=== PATIENT | female | born 1990 | race Caucasian/White ===

== ENCOUNTER 2017-03-02 08:56 | Emergency (ER) | payer OTHER ==
[~2017-03-02] VITALS: Ht 170.2 cm; Wt 130.0 kg
[~2017-03-02 08:56] MED LIST: DIVA250T PO; LACT20SO4 PO; QUET100 PO
[2017-03-02 08:57] VITALS: BP 190/70; PULSE 101; RESP 20; TEMP 97.8; O2SAT 98
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
[2017-03-02] MEDS ORDERED: AZIT250T3 PO (10:42)
[2017-03-02] MEDS ORDERED: VENTAER INH (10:42)
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
[2017-03-02] MEDS ORDERED: RESP: ALBUTEROL 2.5 MG/IPRATROPIUM 0.5 MG NEB (SCH) NEB ONE (10:45)
[2017-03-02 11:47] VITALS: BP 136/88; PULSE 89; RESP 17; O2SAT 100
[2017-03-02] MEDS ORDERED: BENZ100 PO (11:57)
== END 2017-03-02 12:02 | disposition home or self-care (01) ==
LOC: NEPD 08:56
DX: J20.9 Acute bronchitis, unspecified (principal); H92.09 Otalgia, unspecified ear; F31.9 Bipolar disorder, unspecified; F41.9 Anxiety disorder, unspecified
CPT/HCPCS: 71010; 94664; 99284

== ENCOUNTER 2017-03-16 18:43 | Inpatient (IN) | payer OTHER ==
[~2017-03-16] VITALS: Ht 170.2 cm; Wt 122.3 kg
[~2017-03-16 18:43] MED LIST changes: +AZIT250T3 PO; +BENZ100 PO; -DIVA250T PO; -LACT20SO4 PO; -QUET100 PO; +VENTAER INH
[2017-03-16 18:47] VITALS: BP 123/77; PULSE 101; RESP 18; TEMP 98.7; O2SAT 100
[2017-03-16 19:17] VITALS: BP 138/71; PULSE 96; RESP 17; TEMP 99.1; O2SAT 100
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
[2017-03-16 20:31] LABS: AUTOMATED NEUTROPHIL # 11.6 TH/MM3 (1.8-7.7); BASOPHIL # 0.1 TH/MM3 (0-0.2); BASOPHIL % 0.5 % (0.0-2.0); EOSINOPHIL # 0.3 TH/MM3 (0-0.4); EOSINOPHIL % 2.2 % (0.0-4.0); HEMATOCRIT 40.5 % (35.0-46.0); HEMO FLAGS DIFF FINAL; LYMPH % 15.9 % (9.0-44.0); LYMPHOCYTE # 2.5 TH/MM3 (1.0-4.8); MEAN CELL VOLUME 86.9 FL (80.0-100.0); MEAN CORPUSCULAR HGB CONC 33.3 % (32.0-36.0); MONO % 7.2 % (0.0-8.0); NEUT % 74.2 % (16.0-70.0); PLATELET COUNT 313 TH/MM3 (150-450); RED BLOOD COUNT 4.66 MIL/MM3 (4.00-5.30); RED CELL DISTRIBUTION WIDTH 13.2 % (11.6-17.2); WHITE BLOOD COUNT 15.7 TH/MM3 (4.0-11.0)
[2017-03-16 21:10] LABS: ALKALINE PHOSPHATASE 100 U/L (45-117); ALT (GPT) 31 U/L (10-53); ANION GAP 10 MEQ/L (5-15); AST (GOT) 58 U/L (15-37); BICARBONATE 24.9 MEQ/L (21.0-32.0); BLOOD UREA NITROGEN 8 MG/DL (7-18); CHLORIDE 100 MEQ/L (98-107); GLOMERULAR FILTRATION RATE 87 ML/MIN (>89); SODIUM (NA) 135 MEQ/L (136-145); TOTAL BILIRUBIN ADULT 1.1 MG/DL (0.2-1.0)
[2017-03-16 21:14] LABS: ACETAMINOPHEN LESS THAN 2.0 MCG/ML (10.0-30.0); ALCOHOL LESS THAN 3 MG/DL (0-5)
[2017-03-16 21:16] LABS: POTASSIUM 2.9 MEQ/L (3.5-5.1)
[2017-03-16] MEDS ORDERED: LORazepam 2 MG/ML VIAL IM ONE (21:30)
[2017-03-16] MEDS ORDERED: POTASSIUM CHLOR 10 MEQ PREMIX 100 ML IV ONE (21:30)
[2017-03-16] MEDS ORDERED: POTASSIUM CHLORIDE 20 MEQ CONTROLLED RELEASE TAB PO ONE (21:30)
[2017-03-16] MEDS ORDERED: OLANZapine IM 10 MG VIAL IM ONE (21:45)
[2017-03-17] VITALS (9 sets, daily range): BP systolic 128–179; BP diastolic 66–101; PULSE 72–94; RESP 14–17; TEMP 98.7; O2SAT 98–100
[2017-03-17 02:33] LABS: ALKALINE PHOSPHATASE 82 U/L (45-117); ALT (GPT) 30 U/L (10-53); ANION GAP 6 MEQ/L (5-15); AST (GOT) 45 U/L (15-37); BICARBONATE 28.4 MEQ/L (21.0-32.0); BLOOD UREA NITROGEN 8 MG/DL (7-18); CHLORIDE 105 MEQ/L (98-107); GLOMERULAR FILTRATION RATE 123 ML/MIN (>89); POTASSIUM 3.6 MEQ/L (3.5-5.1); SODIUM (NA) 139 MEQ/L (136-145); TOTAL BILIRUBIN ADULT 0.9 MG/DL (0.2-1.0)
[2017-03-17] MEDS ORDERED: POTASSIUM CHLORIDE 20 MEQ CONTROLLED RELEASE TAB PO ONE (08:00)
[2017-03-17] MEDS ORDERED: LORazepam 2 MG/ML VIAL IM PRN (10:15)
[2017-03-17] MEDS ORDERED: ACETAMINOPHEN 325 MG TAB PO PRN (10:15)
[2017-03-17] MEDS ORDERED: LORazepam 1 MG TAB PO PRN (10:15)
[2017-03-17] MEDS ORDERED: MAGNESIUM HYDROXIDE SUSP 30 ML CUP PO PRN (10:15)
[2017-03-17] MEDS ORDERED: diphenhydrAMINE HCL 50 MG/ML VIAL IM PRN (10:15)
[2017-03-17] MEDS ORDERED: ALUMINUM/MAGNESIUM/SIMETH 30 ML CUP PO PRN (10:15)
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
[2017-03-18 05:56] VITALS: BP 119/66; PULSE 97; RESP 18; TEMP 98; O2SAT 96
[2017-03-18 08:41] LABS: AUTOMATED NEUTROPHIL # 6.7 TH/MM3 (1.8-7.7); BASOPHIL % 0.5 % (0.0-2.0); EOSINOPHIL # 0.3 TH/MM3 (0-0.4); EOSINOPHIL % 3.1 % (0.0-4.0); HEMATOCRIT 38.3 % (35.0-46.0); HEMO FLAGS DIFF FINAL; LYMPH % 19.8 % (9.0-44.0); MEAN CELL VOLUME 87.2 FL (80.0-100.0); MEAN CORPUSCULAR HEMOGLOBIN 29.9 PG (27.0-34.0); MEAN CORPUSCULAR HGB CONC 34.3 % (32.0-36.0); MONO % 9.8 % (0.0-8.0); NEUT % 66.8 % (16.0-70.0); PLATELET COUNT 272 TH/MM3 (150-450); RED BLOOD COUNT 4.39 MIL/MM3 (4.00-5.30); RED CELL DISTRIBUTION WIDTH 13.2 % (11.6-17.2)
[2017-03-18 09:02] LABS: ANION GAP 7 MEQ/L (5-15); AST (GOT) 38 U/L (15-37); BICARBONATE 25.6 MEQ/L (21.0-32.0); BLOOD UREA NITROGEN 10 MG/DL (7-18); CHLORIDE 104 MEQ/L (98-107); GLOMERULAR FILTRATION RATE 93 ML/MIN (>89); POTASSIUM 3.4 MEQ/L (3.5-5.1); SODIUM (NA) 137 MEQ/L (136-145)
[2017-03-18 09:30] LABS: ALKALINE PHOSPHATASE 89 U/L (45-117); ALT (GPT) 33 U/L (10-53); HDL CHOLESTEROL 37.5 MG/DL (40.0-60.0); LDL CHOLESTEROL 87 MG/DL (0-99); TOTAL BILIRUBIN ADULT 0.8 MG/DL (0.2-1.0)
--- NOTE | 2017-03-18 14:29 | HHI.PYPN ---
Subjective Remarks Pt seen and discussed with staff. Pt is no longer catatonic but she has been observed responding to internal stimuli and has been agitated with administrative staff supervisor. She states that she stopped taking geodon because "it wasn't working anyway". but will not elaborate further. She states that she absolutely will not take geodon or risperdal but does agree to trial of abilify. She is bizarre and easily agitated. Mental Status Examination Appearance: Disheveled Consciousness: Alert Orientation: Person, Place Motor Activity: Normal gait Speech: Pressured, Other (mute) Language: Adequate Fund of Knowledge: Adequate Attention and Concentration: Easily Distracted, Inadequate Memory: Impaired Mood: Angry, Other (easily agitated) Affect: Other (bizarre intense stare) Thought Process & Associations: Loose associations Thought Content: Delusional Hallucination Type: Auditory, Other (Appears int stim) Delusion Type: Bizarre, Paranoid, Other (Unable to assess as pt is mute) Suicidal Ideation: No Suicidal Plan: No Suicidal Intention: No Homicidal Ideation: No Homicidal Plan: No Homicidal Intention: No Insight: Poor Judgment: Poor Results Labs Test 03/18/17 07:55 White Blood Count 10.0 TH/MM3 Red Blood Count 4.39 MIL/MM3 Hemoglobin 13.1 GM/DL Hematocrit 38.3 % Mean Corpuscular Volume 87.2 FL Mean Corpuscular Hemoglobin 29.9 PG Mean Corpuscular Hemoglobin Concent 34.3 % Red Cell Distribution Width 13.2 % Platelet Count 272 TH/MM3 Mean Platelet Volume 8.1 FL Neutrophils (%) (Auto) 66.8 % Lymphocytes (%) (Auto) 19.8 % Monocytes (%) (Auto) 9.8 % Eosinophils (%) (Auto) 3.1 % Basophils (%) (Auto) 0.5 % Neutrophils # (Auto) 6.7 TH/MM3 Lymphocytes # (Auto) 2.0 TH/MM3 Monocytes # (Auto) 1.0 TH/MM3 Eosinophils # (Auto) 0.3 TH/MM3 Basophils # (Auto) 0.0 TH/MM3 CBC Comment DIFF FINAL Differential Comment Blood Urea Nitrogen 10 MG/DL Creatinine 0.75 MG/DL Random Glucose 95 MG/DL Total Protein 7.9 GM/DL Albumin 3.9 GM/DL Calcium Level 8.5 MG/DL Alkaline Phosphatase 89 U/L Aspartate Amino Transf (AST/SGOT) 38 U/L Alanine Aminotransferase (ALT/SGPT) 33 U/L Total Bilirubin 0.8 MG/DL Sodium Level 137 MEQ/L Potassium Level 3.4 MEQ/L Chloride Level 104 MEQ/L Carbon Dioxide Level 25.6 MEQ/L Anion Gap 7 MEQ/L Estimat Glomerular Filtration Rate 93 ML/MIN Triglycerides Level 107 MG/DL Cholesterol Level 146 MG/DL LDL Cholesterol 87 MG/DL HDL Cholesterol 37.5 MG/DL Cholesterol/HDL Ratio 3.89 RATIO Vitamin B12 Level 497 PG/ML 25-Hydroxy Vitamin D Total 19.0 ng/ML Thyroid Stimulating Hormone 3rd Gen 1.240 uIU/ML Vitals/IOs Vital Signs Date Time Temp Pulse Resp B/P (MAP) Pulse Ox O2 Delivery O2 Flow Rate FiO2 03/18/17 05:56 98.0 97 18 119/66 (83) 96 03/17/17 04:43 Room Air Assessment & Plan Problem List: (1) Bipolar disorder, current episode mixed, severe, with psychotic features ICD Codes: F31.64 - Bipolar disorder, current episode mixed, severe, with psychotic features Assessment & Plan Start trial of Abilify. Continue hospitalization. Estimated LOS: days Justification for Cont. Inpt. impairments in reality testing, agitation Leny Brand MD Mar 18, 2017 14:29
[2017-03-18] MEDS ORDERED: RESP: ALBUTEROL 2.5 MG/IPRATROPIUM 0.5 MG NEB (PRN) NEB (15:30)
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
[2017-03-18 17:22] VITALS: BP 130/72; PULSE 80; RESP 18; TEMP 98; O2SAT 97
[2017-03-18] MEDS ORDERED: POTASSIUM CHLORIDE 10 MEQ CONTROLLED RELEASE TAB PO ONE (17:45)
[2017-03-18] MEDS: diphenhydrAMINE HCL 50 MG CAP PO PRN (21:00)
[2017-03-18] MEDS: NYSTATIN 100,000 UNIT/GM CREAM 15 GM TOPICAL SCH (21:00)
[2017-03-18] MEDS: BENZONATATE 100 MG CAP PO PRN (21:00)
[2017-03-18] MEDS: ALBUTEROL SULFATE 90 MCG/ACT HFA 8 GM INHALER INH PRN (21:00)
[2017-03-18 22:52] LABS: BLOOD, URINE LARGE (NEG); CALCIUM OXALATE CRYSTALS,URINE OCC /hpf; COMMENT (UR) CULT NOT INDICATED; CULTURE IF INDICATED CULT NOT INDICATED; GLUCOSE,URINE NEG (NEG); KETONE, URINE NEG (NEG); MUCUS URINE FEW /lpf (OCC); NITRITE,URINE NEG (NEG); SQUAMOUS EPITHELIAL CELL URINE 3 /hpf (0-5); URINE COLOR YELLOW (YELLW/STRAW)
[2017-03-19 01:09] LABS: CHLAMYDIA PCR NOT DETECTED (NOT DETECT); NEISSERIA PCR NOT DETECTED (NOT DETECT)
[2017-03-19] MEDS: BENZONATATE 100 MG CAP PO PRN ×2 (05:36→21:08)
[2017-03-19] MEDS: ALBUTEROL SULFATE 90 MCG/ACT HFA 8 GM INHALER INH PRN ×3 (05:36→21:07)
[2017-03-19 05:57] VITALS: BP 133/64; PULSE 88; RESP 17; TEMP 97.6; O2SAT 97
--- NOTE | 2017-03-19 08:28 | HHI.PR ---
Subjective Remarks no cough, fever ro chills.She is not weezinf. No abd pain. Eating well. Feels much better. Rash and itching perineal the same. Objective Vitals Vital Signs Date Time Temp Pulse Resp B/P (MAP) Pulse Ox O2 Delivery O2 Flow Rate FiO2 03/19/17 05:57 97.6 88 17 133/64 (87) 97 03/18/17 17:22 98.0 80 18 130/72 (91) 97 Result Diagram: 03/18/17 0755 03/18/17 0755 Objective Remarks GENERAL: This is a well-nourished, well-developed patient, in no apparent distress. SKIN: Intertriginous perineal red beefy rash. No ecchymoses. Cool and dry. CARDIOVASCULAR: Regular rate and rhythm without murmurs, gallops, or rubs. RESPIRATORY: Clear to auscultation. Breath sounds equal bilaterally. No wheezes , rales, or rhonchi. GASTROINTESTINAL: Abdomen soft, non-tender, nondistended. No hepato-splenomegaly , or palpable masses. No guarding. MUSCULOSKELETAL: Extremities without clubbing, cyanosis, or edema. No joint tenderness, effusion, or edema noted. No calf tenderness. Negative Homans sign bilaterally. A/P Assessment and Plan 26-year-old female here under Barron act for psychiatric evaluation. Patient is admitted to psych unit for management Bipolar disorder management per psych H/o Asthma duonebs as need. Monitor O2 sat . Currently satting well on room air. Tessalon pearles prn if cough CBC reveals leukocytosis.Monitor for signs of infection Cutaneous candidiasis: Continue nystatin cream. UA and GC/Chlam reviewed and negative. Hypokalemia: Potassium levels 3.1. replaced in the ED. Monitor and replete as need DVT ppx early ambulation Discussed Condition With patient, nurse Kaylen Almonte MD Mar 19, 2017 08:28
[2017-03-19] MEDS: NYSTATIN 100,000 UNIT/GM CREAM 15 GM TOPICAL SCH ×2 (09:06→21:08)
[2017-03-19 09:32] LABS: HEMOGLOBIN A1a 1.2 %; HEMOGLOBIN A1b 1.8 %; HEMOGLOBIN Ao 85.5 %; HEMOGLOBIN P3 3.5 %
[2017-03-19] MEDS: ARIPiprazole 5 MG TAB PO SCH (12:00)
--- NOTE | 2017-03-19 12:02 | HHI.PYPN ---
Subjective Remarks Pt seen and discussed with staff. She remains psychotic and manic, but has not been aggressive this morning. She has spent most of morning in room. She states that she is agreeable to take medications. No SI/HI Mental Status Examination Appearance: Disheveled Consciousness: Alert Orientation: Person, Place Motor Activity: Normal gait Speech: Pressured, Other (mute) Language: Adequate Fund of Knowledge: Adequate Attention and Concentration: Easily Distracted, Inadequate Memory: Impaired Mood: Angry, Other (easily agitated) Affect: Other (bizarre intense stare) Thought Process & Associations: Loose associations Thought Content: Delusional Hallucination Type: Auditory, Other (Appears int stim) Delusion Type: Bizarre, Paranoid, Other (Unable to assess as pt is mute) Suicidal Ideation: No Suicidal Plan: No Suicidal Intention: No Homicidal Ideation: No Homicidal Plan: No Homicidal Intention: No Insight: Poor Judgment: Poor Results Labs Test 03/18/17 21:10 Urine Color YELLOW Urine Turbidity CLEAR Urine pH 6.0 Urine Specific [place] 1.032 Urine Protein 30 mg/dL Urine Glucose (UA) NEG mg/dL Urine Ketones NEG mg/dL Urine Occult Blood LARGE Urine Nitrite NEG Urine Bilirubin NEG Urine Urobilinogen 4.0 MG/DL Urine Leukocyte Esterase NEG Urine RBC /hpf Urine WBC LESS THAN 1 /hpf Urine Squamous Epithelial Cells 3 /hpf Urine Calcium Oxalate Crystals OCC /hpf Urine Mucus FEW /lpf Microscopic Urinalysis Comment CULT NOT INDICATED Chlamydia trachomatis DNA (PCR) NOT DETECTED Neisseria gonorrhoeae DNA (PCR) NOT DETECTED Vitals/IOs Vital Signs Date Time Temp Pulse Resp B/P (MAP) Pulse Ox O2 Delivery O2 Flow Rate FiO2 03/19/17 05:57 97.6 88 17 133/64 (87) 97 03/17/17 04:43 Room Air Assessment & Plan Problem List: (1) Bipolar disorder, current episode mixed, severe, with psychotic features ICD Codes: F31.64 - Bipolar disorder, current episode mixed, severe, with psychotic features Assessment & Plan Continue current tx plan. Estimated LOS: days Justification for Cont. Inpt. psychosis Leny Brand MD Mar 19, 2017 12:02
[2017-03-19 18:21] VITALS: BP 123/68; PULSE 86; RESP 18; TEMP 98.8; O2SAT 99
--- NOTE | 2017-03-19 22:57 | EKG ---
Date Performed: 03/18/2017 Time Performed: 09:26:28 PTAGE: 26 years EKG: Sinus rhythm NORMAL ECG PREVIOUS TRACING : 07/13/2013 17.39 Compared to prior tracing no significant change DOCTOR: Alexys Vivar Interpretating Date/Time 03/19/2017 22:55:24
[2017-03-20] MEDS: diphenhydrAMINE HCL 50 MG CAP PO PRN (03:01)
[2017-03-20 06:07] VITALS: BP 164/78; PULSE 87; RESP 16; TEMP 97.8; O2SAT 97
[2017-03-20 06:09] VITALS: BP 124/71; PULSE 82; RESP 18; TEMP 97.6; O2SAT 97
[2017-03-20] MEDS: ARIPiprazole 5 MG TAB PO SCH (08:46)
[2017-03-20] MEDS: NYSTATIN 100,000 UNIT/GM CREAM 15 GM TOPICAL SCH (08:47)
--- NOTE | 2017-03-20 10:19 | HHI.PR ---
Subjective Remarks Rash and itch is improving. No fever or chills. No sob or wheezing. Denies abd pain or urinary complaints. Feels better Objective Vitals Vital Signs Date Time Temp Pulse Resp B/P (MAP) Pulse Ox O2 Delivery O2 Flow Rate FiO2 03/20/17 06:09 97.6 82 18 124/71 (88) 97 03/20/17 06:07 97.8 87 16 164/78 (106) 97 03/19/17 18:21 98.8 86 18 123/68 (86) 99 03/19/17 16:57 Result Diagram: 03/18/17 0755 03/18/17 0755 Objective Remarks GENERAL: This is a well-nourished, well-developed patient, in no apparent distress. SKIN: Intertriginous perineal red beefy rash. No ecchymoses. Cool and dry. CARDIOVASCULAR: Regular rate and rhythm without murmurs, gallops, or rubs. RESPIRATORY: Clear to auscultation. Breath sounds equal bilaterally. No wheezes , rales, or rhonchi. GASTROINTESTINAL: Abdomen soft, non-tender, nondistended. No hepato-splenomegaly , or palpable masses. No guarding. MUSCULOSKELETAL: Extremities without clubbing, cyanosis, or edema. No joint tenderness, effusion, or edema noted. No calf tenderness. Negative Homans sign bilaterally. A/P Assessment and Plan 26-year-old female here under Barron act for psychiatric evaluation. Patient is admitted to psych unit for management Bipolar disorder management per psych H/o Asthma duonebs as need. Monitor O2 sat . Currently satting well on room air. Tessalon pearles prn if cough CBC reveals leukocytosis.Monitor for signs of infection Cutaneous candidiasis: Continue nystatin cream. UA and GC/Chlam reviewed and negative. Hypokalemia: Potassium levels 3.1. replaced in the ED. Monitor and replete as need DVT ppx early ambulation Discussed Condition With patient, nurse Kaylen Almonte MD Mar 20, 2017 10:19
[2017-03-20] MEDS ORDERED: ARIP1TAB11 PO (11:46)
[2017-03-20] MEDS ORDERED: NYST15T TOPICAL (11:46)
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
== END 2017-03-20 16:20 | disposition home or self-care (01) | DRG 885 ==
LOC: NEPJ 18:43 → NEDA 03-17 10:13 → H270 03-17 11:20
PROVIDERS: ADMIT Psychiatry & Neurology Psychiatry; ATTEND Psychiatry & Neurology Psychiatry
DX: F31.77 Bipolar disorder, in partial remission, most recent episode mixed (principal); F06.1 Catatonic disorder due to known physiological condition; Z78.1 Physical restraint status; E87.6 Hypokalemia; D72.829 Elevated white blood cell count, unspecified; B37.2 Candidiasis of skin and nail; F12.10 Cannabis abuse, uncomplicated; F41.9 Anxiety disorder, unspecified; J45.909 Unspecified asthma, uncomplicated; R35.0 Frequency of micturition; Z87.820 Personal history of traumatic brain injury; Z91.14 Patient's other noncompliance with medication regimen; Z83.3 Family history of diabetes mellitus; Z81.8 Family history of other mental and behavioral disorders
CPT/HCPCS: 80053; 80061; 80307; 81001; 82306; 82607; 83036; 84443; 84703; 85025; 87491; 87591; 93005; 96365; 96366; J3480; Q0163

== ENCOUNTER 2017-04-05 18:34 | Emergency (ER) | payer OTHER ==
[~2017-04-05 18:34] MED LIST changes: +ARIP1TAB11 PO; -AZIT250T3 PO; +NYST15T TOPICAL
[2017-04-05 18:38] VITALS: BP 176/93; PULSE 106; RESP 18; TEMP 97.7; O2SAT 99
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
== END 2017-04-05 19:59 | disposition left against medical advice (07) ==
LOC: NEPK 18:34
DX: M25.571 Pain in right ankle and joints of right foot (principal); F31.9 Bipolar disorder, unspecified; F41.9 Anxiety disorder, unspecified; Z79.899 Other long term (current) drug therapy; Z79.51 Long term (current) use of inhaled steroids
CPT/HCPCS: 99282

== ENCOUNTER 2017-04-07 11:49 | Inpatient (IN) | payer OTHER ==
[~2017-04-07] VITALS: Ht 172.7 cm; Wt 118.2 kg
[2017-04-07 11:55] VITALS: BP 162/87; PULSE 103; RESP 18; TEMP 98.6; O2SAT 98
[2017-04-07 12:02] VITALS: BP 162/87; PULSE 101; RESP 18; TEMP 98.6; O2SAT 98
[2017-04-07] MEDS ORDERED: LORazepam 2 MG/ML VIAL IV PUSH ONE (12:15)
[2017-04-07] MEDS ORDERED: SODIUM CHLOR 0.9% 1000 ML INJ 1,000 ML IV ONE (12:15)
[2017-04-07 12:21] LABS: AUTOMATED NEUTROPHIL # 9.5 TH/MM3 (1.8-7.7); BASOPHIL # 0.1 TH/MM3 (0-0.2); BASOPHIL % 0.8 % (0.0-2.0); EOSINOPHIL # 0.2 TH/MM3 (0-0.4); EOSINOPHIL % 1.1 % (0.0-4.0); HEMATOCRIT 37.5 % (35.0-46.0); HEMOGLOBIN 12.8 GM/DL (11.6-15.3); LYMPH % 21.9 % (9.0-44.0); MEAN CELL VOLUME 87.3 FL (80.0-100.0); MEAN CORPUSCULAR HEMOGLOBIN 29.8 PG (27.0-34.0); MEAN CORPUSCULAR HGB CONC 34.2 % (32.0-36.0); MEAN PLATELET VOLUME 8.1 FL (7.0-11.0); MONO % 7.8 % (0.0-8.0); MONOCYTE # 1.1 TH/MM3 (0-0.9); NEUT % 68.4 % (16.0-70.0); PLATELET COUNT 278 TH/MM3 (150-450); RED BLOOD COUNT 4.29 MIL/MM3 (4.00-5.30); RED CELL DISTRIBUTION WIDTH 13.8 % (11.6-17.2); WHITE BLOOD COUNT 13.9 TH/MM3 (4.0-11.0)
[2017-04-07 12:36] LABS: ALT (GPT) 23 U/L (10-53); AST (GOT) 27 U/L (15-37); BICARBONATE 24.1 MEQ/L (21.0-32.0); BLOOD UREA NITROGEN 5 MG/DL (7-18); CALCIUM 8.6 MG/DL (8.5-10.1); CHLORIDE 106 MEQ/L (98-107); CREATININE 0.71 MG/DL (0.50-1.00); GLOMERULAR FILTRATION RATE 100 ML/MIN (>89); GLUCOSE,RANDOM 110 MG/DL (74-106); SODIUM (NA) 138 MEQ/L (136-145)
[2017-04-07 12:38] LABS: ALKALINE PHOSPHATASE 77 U/L (45-117); TOTAL PROTEIN 7.6 GM/DL (6.4-8.2)
[2017-04-07 12:40] LABS: ACETAMINOPHEN LESS THAN 2.0 MCG/ML (10.0-30.0)
[2017-04-07] MEDS: POTASSIUM CHLORIDE 10 MEQ CONTROLLED RELEASE TAB PO ONE (13:15)
[2017-04-07] MEDS: POTASSIUM CHLOR 10 MEQ PREMIX 100 ML IV SCH ×2 (14:15→15:02)
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
[2017-04-07 17:00] VITALS: BP 128/65; PULSE 107; RESP 20; TEMP 97.4; O2SAT 98
--- NOTE | 2017-04-07 17:50 | RADRPT ---
EXAM DATE/TIME: 04/07/2017 17:31 [facility] COMPARISON: No previous studies available for comparison. INDICATIONS : Right ankle pain. No known injruy. MEDICAL HISTORY : Unobtainable. SURGICAL HISTORY : Unobtainable. ENCOUNTER: Initial ACUITY: 1 day PAIN SCORE: Non-responsive. LOCATION: Right Ankle FINDINGS: Fracture base of the fifth metatarsal. Anatomic alignment about the ankle. Talus intact. CONCLUSION: Horizontal fracture base of the fifth metatarsal. Reinaldo Maier MD FACR on April 07, 2017 at 17:47 Board Certified Radiologist. This report was verified electronically.
[2017-04-07] MEDS ORDERED: ALUMINUM/MAGNESIUM/SIMETH 30 ML CUP PO PRN (21:45)
[2017-04-07] MEDS ORDERED: LORazepam 2 MG/ML VIAL IM PRN (21:45)
[2017-04-07] MEDS ORDERED: diphenhydrAMINE HCL 50 MG/ML VIAL IM PRN (21:45)
[2017-04-07] MEDS ORDERED: hydrOXYzine HCL 50 MG TAB PO PRN (21:45)
[2017-04-07] MEDS ORDERED: MAGNESIUM HYDROXIDE SUSP 30 ML CUP PO PRN (21:45)
[2017-04-07] MEDS ORDERED: diphenhydrAMINE HCL 50 MG CAP PO PRN (21:45)
[2017-04-07] MEDS ORDERED: diphenhydrAMINE HCL 50 MG/ML VIAL - HS PRN IM (21:45)
[2017-04-07] MEDS ORDERED: diphenhydrAMINE HCL 50 MG CAP - HS PRN PO (21:45)
[2017-04-07] MEDS ORDERED: ACETAMINOPHEN 325 MG TAB PO PRN (21:45)
[2017-04-07] MEDS ORDERED: clonazePAM 1 MG TAB PO ONE (22:00)
[2017-04-07 22:02] VITALS: BP 137/74; PULSE 75; RESP 18
[2017-04-07] MEDS ORDERED: ARIPiprazole 10 MG TAB PO ONE (22:15)
[2017-04-07 22:20] VITALS: BP 144/86; PULSE 96; RESP 17; TEMP 97.9; O2SAT 96
[2017-04-08] MEDS: traZODone HCL 50 MG TAB PO PRN (00:51)
[2017-04-08 06:15] VITALS: BP 124/79; PULSE 91; RESP 17; TEMP 98; O2SAT 99
[2017-04-08 08:28] LABS: AUTOMATED NEUTROPHIL # 5.5 TH/MM3 (1.8-7.7); BASOPHIL # 0.1 TH/MM3 (0-0.2); BASOPHIL % 0.9 % (0.0-2.0); EOSINOPHIL # 0.3 TH/MM3 (0-0.4); EOSINOPHIL % 3.5 % (0.0-4.0); HEMATOCRIT 37.6 % (35.0-46.0); HEMOGLOBIN 12.6 GM/DL (11.6-15.3); LYMPH % 24.7 % (9.0-44.0); LYMPHOCYTE # 2.2 TH/MM3 (1.0-4.8); MEAN CELL VOLUME 88.1 FL (80.0-100.0); MEAN CORPUSCULAR HEMOGLOBIN 29.5 PG (27.0-34.0); MEAN CORPUSCULAR HGB CONC 33.4 % (32.0-36.0); MEAN PLATELET VOLUME 8.5 FL (7.0-11.0); MONO % 8.7 % (0.0-8.0); MONOCYTE # 0.8 TH/MM3 (0-0.9); NEUT % 62.2 % (16.0-70.0); PLATELET COUNT 270 TH/MM3 (150-450); RED BLOOD COUNT 4.27 MIL/MM3 (4.00-5.30); WHITE BLOOD COUNT 8.9 TH/MM3 (4.0-11.0)
[2017-04-08 08:43] LABS: BICARBONATE 23.5 MEQ/L (21.0-32.0); BLOOD UREA NITROGEN 8 MG/DL (7-18); CHLORIDE 109 MEQ/L (98-107); CHOLESTEROL 142 MG/DL (120-200); CREATININE 0.62 MG/DL (0.50-1.00); GLOMERULAR FILTRATION RATE 116 ML/MIN (>89); GLUCOSE,RANDOM 92 MG/DL (74-106); SODIUM (NA) 141 MEQ/L (136-145)
[2017-04-08 08:46] LABS: CHOLESTEROL/ HDL RATIO 3.42 RATIO; HDL CHOLESTEROL 41.4 MG/DL (40.0-60.0); LDL CHOLESTEROL 86 MG/DL (0-99); TRIGLYCERIDES 72 MG/DL (42-150)
[2017-04-08] MEDS: NICOTINE 21 MG/24 HR PATCH T-DERMAL SCH (09:00)
[2017-04-08] MEDS: LORazepam 1 MG TAB PO PRN ×2 (10:25→18:19)
[2017-04-08 11:57] LABS: HEMOGLOBIN A1C 5.1 % (4.3-6.0)
[2017-04-08] MEDS ORDERED: diphenhydrAMINE HCL 50 MG CAP PO PRN (16:00)
[2017-04-08] MEDS ORDERED: ALBUTEROL SULFATE 90 MCG/ACT HFA 8 GM INHALER INH PRN (16:00)
[2017-04-08] MEDS ORDERED: BENZONATATE 100 MG CAP PO PRN (16:00)
--- NOTE | 2017-04-08 16:01 | HHI.HP ---
Provisional Diagnosis Admission Date Apr 07, 2017 at 21:30 [place] I. Bipolar disorder most recent episode mixed severe with psychotic features f 31.64 Certification of Person's Competence To Provide Express and Informed Consent I have personally examined Yasmeen Arvizu , a person being served at [facility] on, Apr 08, 2017 15:52. Express and informed consent means consent voluntarily given in writing, by a competent person, after sufficient explanation and disclosure of the subject matter involved to enable the person to make a knowing and willful decision without any element of force, fraud, deceit, duress, or other form of constraint or coercion. This person is 18 years of age or older, is not now known to be incompetent to consent to treatment with a guardian advocate, and does not have a health care surrogate or proxy currently making medical treatment decisions. I have found this person to be one of the following: [] Competent to provide express and informed consent, as defined above, for voluntary admission to this facility and is competent to provide express and informed consent for treatment. He/she has the consistent capacity to make well reasoned, willful, and knowing decisions concerning his or her medical or mental health treatment. The person fully and consistently understands the purpose of the admission for examination/placement and is fully capable of personally exercising all rights assured [place] [] Incompetent to provide express and informed consent to voluntary admission, and this is incompetent to provide express and informed consent to treatment. The person must be transferred to involuntary status and a petition for a guardian advocate filed with the Circuit Court. [xxx] Refusing to provide express and informed consent to voluntary admission but is competent to provide express and informed consent for treatment. The person must be discharged or transferred to involuntary status. Form shall be completed within 24 hours of a person's arrival at the receiving facility and filed in the clinical record of each person: 1. Admitted on a voluntary basis 2. Permitted to provide express and informed consent to his/her own treatment 3. Allowed to transfer from involuntary to voluntary status 4. Prior to permitting a person to consent to his or her own treatment after having been previously found incompetent to consent to treatment. History of Present Illness Capacity: Lacks Capacity (patient less capacity sign for admission, at this time has capacity significant for medication) HPI Patient is a 26-year-old white female well-known post multiple prior contacts comes here under Barron act by Dr. Zee Eddy [facility] health dated April 07 6:19 PM stating bipolar disorder manic delusional and unsafe. Patient seen screened in the ED urine tox culture positive for marijuana. Patient was initially admitted to 2600 unit though her manic behavior so disruptive the unit plus the fact that she was removing her close in the common areas letter being transferred to 2700 unit it appears she has been noncompliant with the medication at home [place] his bizarre behaviors with her family. At the present time patient laying quietly in her bed on 2700 nurse Geni present throughout session patient is alert did make eye contact with me while she was lying down. However she is selectively mute she is not responding to any of my questions not responding when I attempted to explain the Barron act. At this time patient does meet criteria for involuntary psychiatric hospitalization of the Barron act I'll do first opinion request second opinion. Though I would hope that patient be compliant with her medications once they're offered under the circumstances. Otherwise remain need to consider health care surrogate and guardian advocate. Review of Systems ROS Limitations: Altered Mental Status, Other (patient selectively mute) Past Psych History Psychological trauma history Noted at this time patient mute Violence risk - others (6 mos) Patient is manic showing aggressive behavior on the 2600 unit Violence risk - self (6 mos) Unable to ascertain due to patient selectively mute Substance Abuse History Drugs/Alcohol past 12 months Patient urine tox positive for marijuana Past Family Social History Coded Allergies: No Known Allergies (Verified Allergy, Unknown, 03/16/17) Active Scripts Nystatin Topical (Nystatin Topical) 100,000 unit/gm Cream, 1 APPLIC TOPICAL Q12HR for Health for 15 Days, TUBE 1 Refill Apply to rash as directed. Prov:Bandar Cain MD 03/20/17 Aripiprazole (Aripiprazole) 5 Mg Tab, 5 MG PO DAILY for Mental Health for 15 Days, #15 TAB 1 Refill Prov:Bandar Cain MD 03/20/17 Benzonatate (Tessalon Perles) 100 Mg Cap, 100 MG PO TID Y for COUGH, #15 CAP 0 Refills Prov:Zee Brooks 03/02/17 Albuterol 18 GM Inh (Ventolin Hfa 18 GM Inh) 90 Mcg/Act Aer, 1 PUFF INH Q4H Y for SHORTNESS OF BREATH, #1 INHALER 0 Refills Prov:Zee Brooks 03/02/17 Current Medications Medications (Trade) Dose Ordered Sig/Veronica Route Start Time Stop Time Status Last Admin (Ativan) 1 mg Q6H PRN PO 04/07/17 21:45 04/08/17 10:25 (Ativan Inj) 1 mg Q6H PRN IM 04/07/17 21:45 (Atarax) 50 mg Q6H PRN PO 04/07/17 21:45 (Benadryl) 50 mg Q6H PRN PO 04/07/17 21:45 (Benadryl Inj) 50 mg Q6H PRN IM 04/07/17 21:45 (Benadryl) 50 mg HS PRN PO 04/07/17 21:45 (Benadryl Inj) 50 mg HS PRN IM 04/07/17 21:45 (Desyrel) 50 mg HS PRN PO 04/07/17 21:45 (Tylenol) 650 mg Q4H PRN PO 04/07/17 21:45 (Milk Of Magnesia Liq) 30 ml DAILY PRN PO 04/07/17 21:45 (Mag-Al Plus Susp Liq) 30 ml Q6H PRN PO 04/07/17 21:45 (Habitrol 21 Mg Patch.24 Hr) 1 patch DAILY T-DERMAL 04/08/17 09:00 Miscellaneous Information 1 HS T-DERMAL 04/08/17 21:00 (KlonoPIN) 1 mg HS PO 04/08/17 21:00 (Abilify) 10 mg HS PO 04/08/17 21:00 Family Psych History Amount of this time due to patient's mutism Social History It appears patient lives with family Patient's Strengths (min. 2) Patient will [facility] appears to have supportive family Physical Exam Patient seen screen cleared in the ED. This time patient resting quietly in her bed she is significantly overweight. She is nonverbal. She appears to be in no acute distress no respiratory distress. Status states she is walking on the unit earlier today without difficulty Vital Signs Vital Signs Date Time Temp Pulse Resp B/P (MAP) Pulse Ox O2 Delivery O2 Flow Rate FiO2 04/08/17 06:15 98.0 91 17 124/79 (94) 99 04/07/17 17:00 Room Air Lab Results Test 04/08/17 06:43 White Blood Count 8.9 TH/MM3 Red Blood Count 4.27 MIL/MM3 Hemoglobin 12.6 GM/DL Hematocrit 37.6 % Mean Corpuscular Volume 88.1 FL Mean Corpuscular Hemoglobin 29.5 PG Mean Corpuscular Hemoglobin Concent 33.4 % Red Cell Distribution Width 14.0 % Platelet Count 270 TH/MM3 Mean Platelet Volume 8.5 FL Neutrophils (%) (Auto) 62.2 % Lymphocytes (%) (Auto) 24.7 % Monocytes (%) (Auto) 8.7 % Eosinophils (%) (Auto) 3.5 % Basophils (%) (Auto) 0.9 % Neutrophils # (Auto) 5.5 TH/MM3 Lymphocytes # (Auto) 2.2 TH/MM3 Monocytes # (Auto) 0.8 TH/MM3 Eosinophils # (Auto) 0.3 TH/MM3 Basophils # (Auto) 0.1 TH/MM3 CBC Comment DIFF FINAL Differential Comment Blood Urea Nitrogen 8 MG/DL Creatinine 0.62 MG/DL Random Glucose 92 MG/DL Calcium Level 9.0 MG/DL Sodium Level 141 MEQ/L Potassium Level 3.3 MEQ/L Chloride Level 109 MEQ/L Carbon Dioxide Level 23.5 MEQ/L Anion Gap 9 MEQ/L Estimat Glomerular Filtration Rate 116 ML/MIN Hemoglobin A1c 5.1 % Triglycerides Level 72 MG/DL Cholesterol Level 142 MG/DL LDL Cholesterol 86 MG/DL HDL Cholesterol 41.4 MG/DL Cholesterol/HDL Ratio 3.42 RATIO Mental Status Examination Appearance: Disheveled Consciousness: Alert Orientation: Person (difficult to ascertain patient selectively mute) Motor Activity: Other (patient laying in bed) Speech: Other (patient selectively mute) Language: Other (patient selectively mute) Fund of Knowledge: Poor (patient selectively mute) Attention and Concentration: Other (patient selectively mute) Memory: Impaired (patient selectively mute) Mood: Oppositional Affect: Other (decreased range and intensity) Thought Process & Associations: Other (patient selectively mute) Thought Content: Other (patient selectively mute) Hallucination Type: None (patient selectively mute) Delusion Type: Other (appears quite vigilant) Suicidal Ideation: No Suicidal Plan: No Suicidal Intention: No Homicidal Ideation: No Homicidal Plan: No Homicidal Intention: No Insight: Poor Judgment: Poor Assessment & Plan Problem List: (1) Bipolar disorder, current episode mixed, severe, with psychotic features ICD Codes: F31.64 - Bipolar disorder, current episode mixed, severe, with psychotic features Assessment & Plan Estimated LOS: days at this time patient meets criteria for involuntary psychiatric hospitalization will do first opinion request second opinion. This time we will allow her to sign for her medications. Hopeless to be fairly short stay and then return her to her family Discharge Planning Hopefully to return to her family Request HC Surrog/Guard Advoc?: No Isrrael José MD Apr 08, 2017 16:01
[2017-04-08] MEDS: ARIPiprazole 5 MG TAB PO SCH (16:48)
[2017-04-08 17:40] VITALS: BP 123/77; PULSE 107; RESP 17; TEMP 98.5; O2SAT 97
[2017-04-08] MEDS ORDERED: ARIPiprazole 10 MG TAB PO SCH (21:00)
[2017-04-08] MEDS: NYSTATIN 100,000 UNIT/GM CREAM 15 GM TOPICAL SCH (21:00)
[2017-04-08] MEDS: REMOVE OLD NICOTINE PATCH T-DERMAL SCH (21:00)
[2017-04-08] MEDS: clonazePAM 1 MG TAB PO SCH (21:33)
[2017-04-09 05:44] VITALS: BP 128/60; PULSE 85; RESP 17; TEMP 97.4; O2SAT 97
[2017-04-09] MEDS: ARIPiprazole 5 MG TAB PO SCH (08:39)
[2017-04-09] MEDS: NYSTATIN 100,000 UNIT/GM CREAM 15 GM TOPICAL SCH ×2 (08:39→21:21)
[2017-04-09] MEDS: NICOTINE 21 MG/24 HR PATCH T-DERMAL SCH (08:40)
--- NOTE | 2017-04-09 12:34 | HHI.PYPN ---
Subjective Remarks Is a request for second opinion. Admission note was reviewed and ambulance contents. Patient was seen and case was discussed with nursing. Patient is oppositional and loud during the interview. She refuses to answer most questions looking at me with a blank stare. And then yells loudly what we want from her. She then becomes advancing towards me and the [employer] had to redirect her. Per nursing she is dancing impulsive and labile throughout the day. Mental Status Examination Appearance: Disheveled Consciousness: Alert Orientation: Person (difficult to ascertain patient selectively mute) Motor Activity: Other (patient laying in bed) Speech: Other (patient selectively mute) Language: Other (patient selectively mute) Fund of Knowledge: Poor (patient selectively mute) Attention and Concentration: Other (patient selectively mute) Memory: Impaired (patient selectively mute) Mood: Oppositional, Manic Affect: Other (decreased range and intensity) Thought Process & Associations: Other (patient selectively mute) Thought Content: Bizarre thinking, Other (patient selectively mute) Hallucination Type: None (patient selectively mute) Delusion Type: Other (appears quite vigilant) Suicidal Ideation: No Suicidal Plan: No Suicidal Intention: No Homicidal Ideation: No Homicidal Plan: No Homicidal Intention: No Insight: Poor Judgment: Poor Results Vitals/IOs Vital Signs Date Time Temp Pulse Resp B/P (MAP) Pulse Ox O2 Delivery O2 Flow Rate FiO2 04/09/17 05:44 97.4 85 17 128/60 (82) 97 04/07/17 17:00 Room Air Assessment & Plan Problem List: (1) Bipolar disorder, current episode mixed, severe, with psychotic features ICD Codes: F31.64 - Bipolar disorder, current episode mixed, severe, with psychotic features Assessment & Plan I agree with the first opinion to continue petition. Criteria include acute marilou. Increase Abilify to 20 mg by mouth daily at bedtime Justification for Cont. Inpt. Patient would decompensate in a less restrictive setting Request HC Surrog/Guard Advoc?: No Mulugeta Medina DO Apr 09, 2017 12:34
[2017-04-09 18:00] VITALS: BP 155/92; PULSE 94; RESP 17; TEMP 97.6; O2SAT 97
[2017-04-09] MEDS: REMOVE OLD NICOTINE PATCH T-DERMAL SCH (21:00)
[2017-04-09] MEDS: clonazePAM 1 MG TAB PO SCH ×2 (21:00→21:21)
[2017-04-10 05:41] VITALS: BP 140/79; PULSE 80; RESP 17; TEMP 98; O2SAT 100
[2017-04-10] MEDS: NICOTINE 21 MG/24 HR PATCH T-DERMAL SCH (09:00)
--- NOTE | 2017-04-10 09:05 | HHI.PYPN ---
Subjective Remarks Patient seen and examined with nurse in holiday coverage. Chart reviewed. Refused nighttime dose of Abilify added by the weekend physician but has been accepting morning dose. Case discussed with nursing staff who reports the patient slept only 2 hours overnight. She was apparently disrobing overnight per nursing staff. On my examination today, the patient presents as somewhat oddly related. She smiles inappropriately at times. She appears internally stimulated. She admits to medication nonadherence and use of cannabis prior to admission. No SI or HI. No side effects from medications. No physical complaints. Review of Systems ROS Limitations: Psychotic, Poor Historian Except as stated in HPI: all other systems reviewed are Neg Mental Status Examination Appearance: Disheveled Consciousness: Alert Orientation: Person, Place, Date/Time (knows that today is ) Motor Activity: Normal gait, Other (no motor abnormality noted) Speech: Hesitant, Slow Language: Adequate Fund of Knowledge: Inadequate Attention and Concentration: Inadequate Memory: Impaired (limited sample) Mood: Other (calm) Affect: Flat Thought Process & Associations: Disorganized Thought Content: Bizarre thinking Hallucination Type: Other (appears internally stimulated) Delusion Type: Other (possibly some underlying paranoia) Suicidal Ideation: No Suicidal Plan: No Suicidal Intention: No Homicidal Ideation: No Homicidal Plan: No Homicidal Intention: No Insight: Poor Judgment: Poor Results Labs labs reviewed. Hypokalemia noted status post repletion. Vitals/IOs Vital Signs Date Time Temp Pulse Resp B/P (MAP) Pulse Ox O2 Delivery O2 Flow Rate FiO2 04/10/17 05:41 98.0 80 17 140/79 (99) 100 04/07/17 17:00 Room Air Assessment & Plan Problem List: (1) Bipolar disorder, current episode mixed, severe, with psychotic features ICD Codes: F31.64 - Bipolar disorder, current episode mixed, severe, with psychotic features Assessment & Plan Titrate daytime dose of Abilify to 10 mg daily to target psychotic symptoms. I will discontinue the nighttime dose as the patient was not accepting this, and we will plan for titration of daytime dose with single daily dosing instead. To consider long-acting injectable antipsychotic medication, and I did begin a discussion with patient about this possibility today. Replete potassium. Check a BMP and magnesium in the morning. Continue to monitor on high daily unit. Continue other medications and care as ordered. Justification for Cont. Inpt. Medication changes. Impairment in reality construction. High risk for decompensation in less restrictive environment. Discharge Planning Pending psychiatric stabilization. Request HC Surrog/Guard Advoc?: No Bandar Cain MD Apr 10, 2017 09:05
[2017-04-10] MEDS ORDERED: POTASSIUM CHLORIDE 20 MEQ CONTROLLED RELEASE TAB PO ONE (09:15)
[2017-04-10] MEDS: ARIPiprazole 5 MG TAB PO SCH (09:27)
[2017-04-10] MEDS: NYSTATIN 100,000 UNIT/GM CREAM 15 GM TOPICAL SCH ×2 (09:27→20:19)
[2017-04-10] MEDS: hydrOXYzine HCL 50 MG TAB PO PRN (11:30)
[2017-04-10 18:08] VITALS: BP 139/76; PULSE 87; RESP 17; TEMP 98.6; O2SAT 98
[2017-04-10] MEDS: clonazePAM 1 MG TAB PO SCH (20:16)
[2017-04-10] MEDS: REMOVE OLD NICOTINE PATCH T-DERMAL SCH (20:19)
[2017-04-11] MEDS: ACETAMINOPHEN 325 MG TAB PO PRN (01:22)
[2017-04-11] MEDS: traZODone HCL 50 MG TAB PO PRN ×2 (01:22→20:56)
[2017-04-11 06:10] VITALS: BP 139/96; PULSE 95; RESP 18; TEMP 97.6; O2SAT 99
[2017-04-11 07:29] LABS: BICARBONATE 27.2 MEQ/L (21.0-32.0); CALCIUM 9.5 MG/DL (8.5-10.1); CREATININE 0.74 MG/DL (0.50-1.00); MAGNESIUM 2.4 MG/DL (1.5-2.5)
[2017-04-11] MEDS: ARIPiprazole 5 MG TAB PO SCH (08:43)
[2017-04-11] MEDS: NICOTINE 21 MG/24 HR PATCH T-DERMAL SCH (08:44)
[2017-04-11] MEDS: NYSTATIN 100,000 UNIT/GM CREAM 15 GM TOPICAL SCH ×2 (08:47→20:59)
--- NOTE | 2017-04-11 09:18 | HHI.PYPN ---
Subjective Chief Complaint: psychosis Remarks patient seen and examined with nurse. Chart reviewed. Case discussed in treatment team with counselor and occupational therapist. Case also discussed with nursing staff reports the patient slept only 3 hours overnight. She has been crying and bizarre. She was walking around in her bra earlier today per nursing staff but was redirected by staff to put on a gown. On my examination today, the patient presents as somewhat psychomotor slowed. Affect is labile, varying between flat and tearful. She appears internally preoccupied. Denies side effects from medications. Complains of right lateral foot pain, and she does indeed have a metatarsal fracture. Nurse reports that she had a splint but took it off. Review of Systems ROS Limitations: Psychotic, Poor Historian Except as stated in HPI: all other systems reviewed are Neg Mental Status Examination Appearance: Disheveled Consciousness: Alert Orientation: Person, Place Motor Activity: Normal gait, Other (psychomotor slowed. No other motor abnormalities noted.) Speech: Hesitant, Slow Language: Adequate Fund of Knowledge: Inadequate Attention and Concentration: Inadequate Memory: Impaired (suspect some degree of confabulation related to psychotic illness) Mood: Anxious Affect: Labile Thought Process & Associations: Disorganized Thought Content: Bizarre thinking Hallucination Type: Other (internally preoccupied) Delusion Type: None Suicidal Ideation: No (unreliable to contract for safety) Suicidal Plan: No Suicidal Intention: No Homicidal Ideation: No (unreliable to contract for safety) Homicidal Plan: No Homicidal Intention: No Insight: Poor Judgment: Poor Results Labs Test 04/11/17 06:30 Blood Urea Nitrogen 10 MG/DL Creatinine 0.74 MG/DL Random Glucose 93 MG/DL Calcium Level 9.5 MG/DL Magnesium Level 2.4 MG/DL Sodium Level 139 MEQ/L Potassium Level 4.1 MEQ/L Chloride Level 105 MEQ/L Carbon Dioxide Level 27.2 MEQ/L Anion Gap 7 MEQ/L Estimat Glomerular Filtration Rate 95 ML/MIN Labs reviewed. BMP unremarkable. Magnesium level within normal limits. Vitals/IOs Vital Signs Date Time Temp Pulse Resp B/P (MAP) Pulse Ox O2 Delivery O2 Flow Rate FiO2 04/11/17 06:10 97.6 95 18 139/96 (110) 99 04/07/17 17:00 Room Air Assessment & Plan Problem List: (1) Bipolar disorder, current episode mixed, severe, with psychotic features ICD Codes: F31.64 - Bipolar disorder, current episode mixed, severe, with psychotic features Assessment & Plan Continue Abilify titration to target psychotic symptoms in the setting of patient's bipolar illness. The patient already received 10 mg of Abilify today and I will order an additional 5 mg to make 15 mg of Abilify today. I will order 20 mg of Abilify for tomorrow. Plan for long-acting injectable Antipsychotic. I will replace patient's Klonopin with Ambien for sleep. I will ask the hospitalist to see the patient for the foot fracture. Continue to monitor on the high acuity unit. Continue other medications and care as ordered. Justification for Cont. Inpt. Medication changes. Impairment in self-care. Impairment in reality construction. High risk for decompensation in less restrictive environment. Discharge Planning Pending psychiatric stabilization. Case discussed with counselor. Request HC Surrog/Guard Advoc?: No Bandar Cain MD Apr 11, 2017 09:18
[2017-04-11] MEDS ORDERED: ARIPiprazole 5 MG TAB PO ONE (09:30)
[2017-04-11] MEDS ORDERED: ZOLPIDEM TARTRATE 5 MG TAB PO PRN (09:45)
--- NOTE | 2017-04-11 10:49 | PD.TTN ---
Patient Problems 1. Discharge planning 2. Medication compliance 3. Knowledge deficit 4. Lack of coping skills Progress Toward Goals Provider Present: Dr. Liyah Cain Provider Input: Pt medication regiment is being evaluated including addition of long acting injection form of Abilify. Nurse(s) Present: Radha Urrutia, MESHA Nurse(s) Input: Pt had limited sleep last night, has been tearful, laughing inappropriately and need directions. Psychiatric Counselors Present: LEXIE Hurst Group Spec/RT/OT/JEONG Present: JEAN-PAUL Hinojosa Group Spec/RT/OT/JEONG Input: Pt attends some groups superficially and appears withdrawn, internally stimulated and selectively verbal. Discharge Plan SMA Pt will return to sister's home and will continue to follow up with outpatient psychiatric services in community. Documentation Scribe: LEXIE Hurst Jonathan LMHC Apr 11, 2017 10:49
[2017-04-11] MEDS ORDERED: ACETAMINOPHEN/HYDROcodone 325 MG/5 MG TAB PO PRN (14:15)
[2017-04-11] MEDS: LORazepam 1 MG TAB PO PRN (20:56)
[2017-04-11] MEDS: REMOVE OLD NICOTINE PATCH T-DERMAL SCH (20:59)
[2017-04-12 05:46] VITALS: BP 130/65; PULSE 86; RESP 18; TEMP 97.5; O2SAT 98
[2017-04-12] MEDS: hydrOXYzine HCL 50 MG TAB PO PRN (08:00)
[2017-04-12] MEDS: NICOTINE 21 MG/24 HR PATCH T-DERMAL SCH (09:00)
[2017-04-12] MEDS: NYSTATIN 100,000 UNIT/GM CREAM 15 GM TOPICAL SCH ×2 (09:00→21:00)
[2017-04-12] MEDS: LORazepam 1 MG TAB PO PRN (11:00)
--- NOTE | 2017-04-12 12:21 | HHI.PYPN ---
Subjective Chief Complaint: psychosis Remarks Patient seen and examined with nurse. Chart reviewed. Case discussed with nursing staff. Patient noted to exhibit thought blocking and intermittent muteness overnight. On my examination this morning, the patient is somewhat more interactive although her speech remains quite delayed and she is psychomotor slowed. She complains of a significant amount of anxiety, and this is chiefly situational as she finds a very disruptive female patient on the unit anxiety provoking. When I ask if patient is having any thoughts of hurting others, she replies "yeah, her" referring to the other patient. I have spoken with the nursing staff to take steps to separate these two patients. The patient denies any violent thoughts otherwise. Denies any side effects from medications. No physical complaints. Review of Systems ROS Limitations: Psychotic, Poor Historian Except as stated in HPI: all other systems reviewed are Neg Mental Status Examination Appearance: Disheveled (grooming improving) Consciousness: Alert Orientation: Person, Place Motor Activity: Normal gait, Other (Ongoing psychomotor slowing.) Speech: Hesitant, Slow Language: Adequate Fund of Knowledge: Inadequate Attention and Concentration: Inadequate Memory: Unremarkable Mood: Anxious Affect: Blunt Thought Process & Associations: Disorganized Thought Content: Thought blocking Hallucination Type: Other (Remains internally stimulated) Delusion Type: None Suicidal Ideation: No (unreliable to contract for safety) Suicidal Plan: No Suicidal Intention: No Homicidal Ideation: Yes (Against specific female patient.) Homicidal Plan: No Homicidal Intention: No Insight: Poor Judgment: Poor Results Labs Labs reviewed. No new labs. Vitals/IOs Vital Signs Date Time Temp Pulse Resp B/P (MAP) Pulse Ox O2 Delivery O2 Flow Rate FiO2 04/12/17 05:46 97.5 86 18 130/65 (86) 98 Assessment & Plan Problem List: (1) Bipolar disorder, current episode mixed, severe, with psychotic features ICD Codes: F31.64 - Bipolar disorder, current episode mixed, severe, with psychotic features Assessment & Plan Patient is somewhat more interactive with psychotropic medication adjustments but remains severely decompensated with respect to her psychosis. I will continue to titrate her Abilify to 30 mg daily to target psychotic symptoms. Plan remains for long-acting injectable Abilify so long as she responds adequately to this agent by mouth, and I've discussed this possibility with the patient and she is agreeable to long-acting injectable medication. Consult to podiatry for patient's foot pain. Continue to monitor on the inpatient unit. Continue other medications and care as ordered. Justification for Cont. Inpt. Concern for impairment in safety, taking steps to reduce this risk. Impairment in reality construction. Medication changes. High risk for decompensation in less restrictive environment. Discharge Planning Pending psychiatric stabilization. Request HC Surrog/Guard Advoc?: No Bandar Cain MD Apr 12, 2017 12:21
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
[2017-04-12 18:12] VITALS: BP 130/80; PULSE 82; RESP 18; TEMP 98.1; O2SAT 96
[2017-04-12] MEDS: REMOVE OLD NICOTINE PATCH T-DERMAL SCH (21:00)
[2017-04-13] MEDS: traZODone HCL 50 MG TAB PO PRN ×2 (00:35→21:06)
[2017-04-13] MEDS: hydrOXYzine HCL 50 MG TAB PO PRN (05:23)
[2017-04-13] MEDS: IBUPROFEN 400 MG TAB PO PRN (05:35)
[2017-04-13 06:00] VITALS: BP 126/59; PULSE 73; RESP 16; TEMP 97.5; O2SAT 98
[2017-04-13] MEDS: NYSTATIN 100,000 UNIT/GM CREAM 15 GM TOPICAL SCH ×2 (09:00→21:07)
--- NOTE | 2017-04-13 11:33 | HHI.PYPN ---
Subjective Chief Complaint: psychosis Remarks Patient seen and examined with nurse. Chart reviewed. Case discussed with nursing staff who reports patient has been tearful and psychomotor slowed. On my examination today, the patient displays ongoing psychomotor slowing and labile affect. She alternates between weeping and inappropriate smiling. There is no muteness, stupor, etc. to suggest a catatonic state. She is quite distressed by her ongoing affective lability and says that endorses suicidal ideation as a result, although she contracts for safety on the inpatient unit. She remains internally stimulated. She says "I need a shot [i.e. long-acting injectable] because I am not going to take my meds." Denies side effects from medications. No physical complaints. We discuss patient's pharmacologic options going forward in detail. Review of Systems ROS Limitations: Psychotic, Poor Historian Except as stated in HPI: all other systems reviewed are Neg Mental Status Examination Appearance: Other (fair grooming, showered today) Consciousness: Alert Orientation: Person, Place Motor Activity: Normal gait, Other (Psychomotor slowed) Speech: Hesitant, Slow Language: Adequate Fund of Knowledge: Inadequate Attention and Concentration: Inadequate Memory: Unremarkable Mood: Other (dysphoric) Affect: Labile Thought Process & Associations: Linear Thought Content: Thought blocking Hallucination Type: Other (Internally preoccupied) Delusion Type: None Suicidal Ideation: Yes Suicidal Plan: No Suicidal Intention: No Homicidal Ideation: No Homicidal Plan: No Homicidal Intention: No Insight: Poor Judgment: Poor Results Labs Labs reviewed. No new labs. Vitals/IOs Vital Signs Date Time Temp Pulse Resp B/P (MAP) Pulse Ox O2 Delivery O2 Flow Rate FiO2 04/13/17 06:00 97.5 73 16 126/59 (81) 98 Assessment & Plan Problem List: (1) Bipolar disorder, current episode mixed, severe, with psychotic features ICD Codes: F31.64 - Bipolar disorder, current episode mixed, severe, with psychotic features Assessment & Plan Ongoing mood lability and psychotic symptoms despite maximal dose of Abilify. Patient reports, insightfully I think, that she is unlikely to take medications after discharge, and pharmacologic next steps must take this into account. Thus , rather than adding a mood stabilizer, I will instead add Risperdal 1mg BID. We can then titrate to effect and either taper or continue the Abilify. To consider Consta or Sustenna if patient responds better to the Risperdal than she presently is to the Abilify. Check EKG for QTc. Continue to monitor on the inpatient unit. Although the patient is presently edgar for safety on the inpatient unit, low threshold to transfer back to high acuity unit should there be any evidence of behavioral deterioration. Continue other medications and care as ordered. Justification for Cont. Inpt. Medication changes. Impairment in reality construction. High risk for decompensation in less restrictive environment. Discharge Planning Pending psychiatric stabilization. Request HC Surrog/Guard Advoc?: No Bandar Cain MD Apr 13, 2017 11:33
--- NOTE | 2017-04-13 13:55 | PD.POD.CON ---
Patient Intake Chief Complaint Painful right foot Consult Requested by Psychiatric staff Reason for Consult Evaluation and treatment of fractured fifth metatarsal base right foot Primary Care Physician No Primary Care Physician History of Present Illness Amputation is a 26-year-old female with bipolar disease who injured her right foot. Patient will not communicate with me about the cause of the injury. Radiographs show a transverse fracture of the metatarsal base right fifth met. The fracture is not intra-articular. There is no displacement. Patient currently has a posterior splint in place. Coded Allergies: No Known Allergies (Verified Allergy, Unknown, 03/16/17) Preferred Language to Discuss: Uzbek Barriers to Learning: Emotional Teaching Method: Discussion Vital Signs Date Time Temp Pulse Resp B/P (MAP) Pulse Ox O2 Delivery O2 Flow Rate FiO2 04/13/17 06:00 97.5 73 16 126/59 (81) 98 04/12/17 18:12 98.1 82 18 130/80 (97) 96 Pain scale used: 0-10 numeric scale Pain score: 2 Medications Current Medications Sodium Chloride 1,000 ml @ 999 mls/hr BOLUS ONCE IV Last administered on 12:15; Start 04/07/17 at 12:15; Stop 04/07/17 at 13:15; Status DC Lorazepam (Ativan Inj) 1 mg ONCE ONCE IV PUSH Last administered on 04/07/17 12:15; Start 04/07/17 at 12:15; Stop 04/07/17 at 12:16; Status DC Potassium Chloride (KCl) 30 meq ONCE ONCE PO Last administered on 04/07/17 13:15; Start 04/07/17 at 13:15; Stop 04/07/17 at 13:16; Status DC Potassium Chloride 100 ml @ 100 mls/hr Q1H IV ; Start 04/07/17 at 14:15; Stop 04/07/17 at 17:14; Status DC Lorazepam (Ativan) 1 mg Q6H PRN PO MODERATE TO SEVERE ANXIETY Last administered on 04/12/17 11:00; Start 04/07/17 at 21:45 Lorazepam (Ativan Inj) 1 mg Q6H PRN IM MODERATE TO SEVERE ANXIETY; Start 04/07 at 21:45 Hydroxyzine HCl (Atarax) 50 mg Q6H PRN PO ANXIETY; Start 04/07/17 at 21:45; Stop 04/08/17 at 16:27; Status DC Diphenhydramine HCl (Benadryl) 50 mg Q6H PRN PO MILD ANXIETY, EPS; Start 04/07 at 21:45 Diphenhydramine HCl (Benadryl Inj) 50 mg Q6H PRN IM MILD ANXIETY, EPS; Start 04/07/17 at 21:45 Diphenhydramine HCl (Benadryl) 50 mg HS PRN PO INSOMNIA; Start 04/07/17 at 21: 45; Stop 04/11/17 at 09:24; Status DC Diphenhydramine HCl (Benadryl Inj) 50 mg HS PRN IM INSOMNIA; Start 04/07/17 at 21:45; Stop 04/11/17 at 09:35; Status DC Trazodone HCl (Desyrel) 50 mg HS PRN PO INSOMNIA Last administered on 00:35; Start 04/07/17 at 21:45 Acetaminophen (Tylenol) 650 mg Q4H PRN PO Pain 1-5 or Temp >101F; Start at 21:45; Stop 04/08/17 at 16:11; Status DC Magnesium Hydroxide (Milk Of Magnesia Liq) 30 ml DAILY PRN PO CONSTIPATION; Start 04/07/17 at 21:45 Al Hydrox/Mg Hydrox/Simethicone (Mag-Al Plus Susp Liq) 30 ml Q6H PRN PO DYSPEPSIA; Start 04/07/17 at 21:45 Nicotine (Habitrol 21 Mg Patch.24 Hr) 1 patch DAILY T-DERMAL Last administered on 04/12/17 09:00; Start 04/08/17 at 09:00; Stop 04/12/17 at 13:59; Status DC Miscellaneous Information 1 HS T-DERMAL ; Start 04/08/17 at 21:00 Clonazepam (KlonoPIN) 1 mg HS PO Last administered on 04/10/17 20:16; Start 04/08/17 at 21:00; Stop 04/11/17 at 09:35; Status DC Clonazepam (KlonoPIN) 1 mg NOW ONCE PO ; Start 04/07/17 at 22:00; Stop at 22:02; Status DC Aripiprazole (Abilify) 10 mg HS PO Last administered on 04/08/17 21:33; Start 04/08/17 at 21:00; Stop 04/09/17 at 12:33; Status DC Aripiprazole (Abilify) 10 mg NOW ONCE PO ; Start 04/07/17 at 22:15; Stop at 22:16; Status DC Diphenhydramine HCl (Benadryl) 50 mg HS PRN PO INSOMNIA Last administered on 03:10; Start 04/08/17 at 16:00; Stop 04/11/17 at 09:35; Status DC Acetaminophen (Tylenol) 650 mg Q4H PRN PO headache/fever >100.4 Last administered on 04/11/17 01:22; Start 04/08/17 at 16:00 Hydroxyzine HCl (Atarax) 50 mg Q6H PRN PO ANXIETY Last administered on 05:23; Start 04/08/17 at 16:00 Albuterol Sulfate (Proair Hfa Inh) 1 puff Q4H PRN INH SHORTNESS OF BREATH; Start 04/08/17 at 16:00 Aripiprazole (Abilify) 5 mg DAILY PO Last administered on 04/09/17 08:39; Start 04/08/17 at 16:00; Stop 04/10/17 at 08:59; Status DC Benzonatate (Tessalon) 100 mg TID PRN PO COUGH; Start 04/08/17 at 16:00 Nystatin (Mycostatin Cream) 1 applic Q12HR TOPICAL Last administered on 09:00; Start 04/08/17 at 21:00 Aripiprazole (Abilify) 20 mg HS PO ; Start 04/09/17 at 21:00; Stop 04/10/17 at 08:59; Status DC Aripiprazole (Abilify) 10 mg DAILY PO Last administered on 04/11/17 08:43; Start 04/10/17 at 09:00; Stop 04/11/17 at 09:19; Status DC Potassium Chloride (KCl) 20 meq ONCE ONCE PO Last administered on 04/10/17 09:29; Start 04/10/17 at 09:15; Stop 04/10/17 at 09:16; Status DC Aripiprazole (Abilify) 20 mg DAILY PO Last administered on 04/12/17 09:00; Start 04/12/17 at 09:00; Stop 04/12/17 at 13:06; Status DC Aripiprazole (Abilify) 5 mg ONCE ONCE PO Last administered on 04/11/17 09:30 ; Start 04/11/17 at 09:30; Stop 04/11/17 at 09:31; Status DC Zolpidem Tartrate (Ambien) 5 mg HS PRN PO INSOMNIA; Start 04/11/17 at 09:45; Status Future Hold Acetaminophen/ Hydrocodone Bitart ([place] 5-325 Mg) 1 tab Q6H PRN PO pain 6-10 ; Start 04/11/17 at 14:15 Aripiprazole (Abilify) 30 mg DAILY PO Last administered on 04/13/17 09:00; Start 04/13/17 at 09:00 Ibuprofen (Motrin) 400 mg Q6H PRN PO pain scale 1-5 Last administered on 05:35; Start 04/12/17 at 14:00 Risperidone (risperDAL) 1 mg Q12HR PO ; Start 04/13/17 at 21:00 Past, Family & Social History Past Medical History Psychiatric: REPORTS HX OF: Bipolar disorder Review of Systems Notes Patient will not communicate with me about symptomology Exam-Podiatry Constitutional General appearance: comfortable Nutritional status: overweight Orientation: alert and oriented x3 Dermatological Exam Skin Temp - Right: Within Normal Limits Skin Texture - Right: Within Normal Limits Skin Elasticity - Right: Within Normal Limits Skin Tugor - Right: Within Normal Limits Hair Growth - Right: Within Normal Limits Pigmentation - Right: Within Normal Limits Skin Temp - Left: Within Normal Limits Skin Texture - Left: Within Normal Limits Skin Elasticity - Left: Within Normal Limits Skin Tugor - Left: Within Normal Limits Hair Growth - Left: Within Normal Limits Pigmentation - Left: Within Normal Limits Other: Scars, Surgery,Injury Posterior splint in place right lower extremity. Toes warm, pink and olivia upon compression Vascular/Lymphatic Exam R Dorsails Pedis: Palpable L Dorsails Pedis: Palpable R Posterior Tibial: Palpable L Posterior Tibial: Palpable Neurologic Exam Details Deferred exam Muscle Strength Dorsiflexion (Right): Normal Plantarflexion (Right): Normal Inversion (Right): Normal Eversion (Right): Normal Digital (Right): Normal Dorsiflexion (Left): Normal Plantarflexion (Left): Normal Inversion (Left): Normal Eversion (Left): Normal Digital (Left): Normal Foot Range of Motion Dorsiflexion (Right): Normal Plantarflexion (Right): Normal Inversion (Right): Normal Eversion (Right): Normal Digital (Right): Normal Dorsiflexion (Left): Normal Plantarflexion (Left): Normal Inversion (Left): Normal Eversion (Left): Normal Digital (Left): Normal Lab and Radiology Results Radiology Last Impressions Ankle X-Ray 04/07/17 0000 Signed Impressions: Service Date/Time: Friday, April 07, 2017 17:31 - CONCLUSION: Horizontal fracture base of the fifth metatarsal. Reinaldo Maier MD FACR Assessment/Plan Problem List: (1) Metatarsal fracture Status: Acute Additional Plans & Procedures PLAN: Ordered fracture brace for the right lower extremity. She is aware that all times except bathing. She is to wear a minimum of 8 weeks. New radiographs in 1 month. Please reconsult me if needed. Problem Qualifiers (1) Metatarsal fracture: Qualified Codes: S92.354A - Nondisplaced fracture of fifth metatarsal bone, right foot, initial encounter for closed fracture Christo Smith DPM Apr 13, 2017 13:55
[2017-04-13 17:00] VITALS: BP 130/63; PULSE 77; RESP 18; TEMP 98; O2SAT 98
[2017-04-13] MEDS: REMOVE OLD NICOTINE PATCH T-DERMAL SCH (21:00)
[2017-04-13] MEDS: risperiDONE 1 MG TAB PO SCH (21:06)
[2017-04-14 05:38] VITALS: BP 99/52; PULSE 72; RESP 16; TEMP 97.9; O2SAT 98
[2017-04-14] MEDS: NYSTATIN 100,000 UNIT/GM CREAM 15 GM TOPICAL SCH ×2 (08:45→21:15)
[2017-04-14] MEDS: risperiDONE 1 MG TAB PO SCH ×2 (08:45→21:14)
--- NOTE | 2017-04-14 10:58 | HHI.PYPN ---
Subjective Chief Complaint: psychosis Remarks Patient seen and examined with nurse. Chart reviewed. Case discussed with nursing staff who reports the patient has been more interactive since switching to Risperdal. Case discussed in treatment team with counselor and occupational therapist who reports that patient is attending select groups but has limited tolerability of these groups. On my examination today, the patient is slightly less psychomotor slowed. She remains internally preoccupied but denies any AVH. She is significantly less labile with respect to her affect. She remains agreeable to long-acting injectable once we identify an effective antipsychotic agent. She denies side effects from medications. No physical complaints. Review of Systems ROS Limitations: Psychotic, Poor Historian Except as stated in HPI: all other systems reviewed are Neg Mental Status Examination Appearance: Appropriate Consciousness: Alert Orientation: Person, Place (at least) Motor Activity: Normal gait (affected foot is booted today), Other (a little less psychomotor slowing today) Speech: Hesitant, Slow (slightly less so) Language: Adequate Fund of Knowledge: Inadequate Attention and Concentration: Inadequate Memory: Unremarkable Mood: Other (calm) Affect: Labile (significantly less labile) Thought Process & Associations: Linear Thought Content: Thought blocking (decreasing) Hallucination Type: Other (remains somewhat internally preoccupied) Delusion Type: None Suicidal Ideation: No Suicidal Plan: No Suicidal Intention: No Homicidal Ideation: No Homicidal Plan: No Homicidal Intention: No Insight: Poor Judgment: Poor Results Labs Labs reviewed. No new labs. Vitals/IOs Vital Signs Date Time Temp Pulse Resp B/P (MAP) Pulse Ox O2 Delivery O2 Flow Rate FiO2 04/14/17 05:38 97.9 72 16 99/52 (68) 98 Intake and Output 04/14/17 04/14/17 04/15/17 08:00 16:00 00:00 Intake Total 360 ml Balance 360 ml Assessment & Plan Problem List: (1) Bipolar disorder, current episode mixed, severe, with psychotic features ICD Codes: F31.64 - Bipolar disorder, current episode mixed, severe, with psychotic features Assessment & Plan We do seem to be making more progress with the Risperdal. I will titrate the Risperdal over the weekend to a target dose of 4 mg total daily dose. So long as this agent proves to be efficacious, I will plan to start the patient on a long-acting injectable form of Risperdal or a derivative (i.e. Consta/Sustenna) on Monday. Continue Abilify as ordered, plan remains to consider tapering this agent. Continue to monitor on an inpatient unit. Continue other medications and care as ordered. Justification for Cont. Inpt. Medication changes. Ongoing but improving impairments in reality construction. High risk for decompensation in less restrictive environment. Discharge Planning Now that we have found a promising agent, I am hopeful that the patient may be adequately stabilized for safe discharge Monday or Monday of next week. Request HC Surrog/Guard Advoc?: No Bandar Cain MD Apr 14, 2017 10:58
--- NOTE | 2017-04-14 14:03 | EKG ---
Date Performed: 04/13/2017 Time Performed: 12:54:20 PTAGE: 26 years EKG: Sinus rhythm NORMAL ECG Compared to prior tracing no significant change PREVIOUS TRACING : 03/18/2017 09.26 DOCTOR: Satish Orozco Interpretating Date/Time 04/14/2017 14:03:18
--- NOTE | 2017-04-14 15:21 | PD.TTN ---
Patient Problems 1. Discharge planning 2. Medication compliance 3. Knowledge deficit 4. Lack of coping skills Progress Toward Goals Provider Present: Dr. Liyah Cain Provider Input: Pt medication regiment is being evaluated including addition of long acting injection form of Abilify. 04/14/17 Pt is less labile from yesterday. Patient's medication is being adjusted. Patient continues to present internally stimulated. Nurse(s) Present: Radha Urrutia, RN Nurse(s) Input: Pt had limited sleep last night, has been tearful, laughing inappropriately and need directions. 04/14/17 Patient's Nurse Jorje reports patient is slow to respond, appears discharge focused, is wanting long acting injection Psychiatric Counselors Present: LEXIE Hurst Elizabeth Greeff, [facility] Psych Therapist Input: 04/14/17 Patient presented childlike, internally stimulated, slow to respond. Patient made fair eye contact. Patient states she is wanting to go home. Patient is medication compliant but states she is wanting to go on the long acting injection. Patient denies suicidal and homicidal ideation. Group Spec/RT/OT/JEONG Present: JEAN-PAUL Hinojosa Group Spec/RT/OT/JEONG Input: Pt attends some groups superficially and appears withdrawn, internally stimulated and selectively verbal. 04/14/17 Patient attends selective groups, limited tolerance Discharge Plan SMA Pt will return to sister's home and will continue to follow up with outpatient psychiatric services in community. Documentation Scribe: LEXIE Hurst Elizabeth [facility] Apr 14, 2017 15:21
[2017-04-14 18:00] VITALS: BP 117/59; PULSE 79; RESP 17; TEMP 98.1; O2SAT 98
[2017-04-14] MEDS ORDERED: risperiDONE 1 MG TAB PO SCH (21:00)
[2017-04-14] MEDS: REMOVE OLD NICOTINE PATCH T-DERMAL SCH (21:00)
[2017-04-15 06:28] VITALS: BP 122/69; PULSE 86; RESP 17; TEMP 98.2; O2SAT 99
[2017-04-15] MEDS: risperiDONE 1 MG TAB PO SCH ×2 (08:43→20:29)
[2017-04-15] MEDS: NYSTATIN 100,000 UNIT/GM CREAM 15 GM TOPICAL SCH ×2 (08:46→21:00)
[2017-04-15] MEDS: ACETAMINOPHEN 325 MG TAB PO PRN (11:00)
--- NOTE | 2017-04-15 14:49 | HHI.PYPN ---
Subjective Chief Complaint: psychosis Remarks Pt seen and discussed with staff. Last night she was labile and aggressive towards staff weapons officer. Today she has been calm and quiet. She is compliant with medications and has been less secluded to her room. Mental Status Examination Appearance: Appropriate Consciousness: Alert Orientation: Person, Place (at least) Motor Activity: Normal gait (affected foot is booted today), Other (a little less psychomotor slowing today) Speech: Hesitant, Slow (slightly less so) Language: Adequate Fund of Knowledge: Inadequate Attention and Concentration: Inadequate Memory: Unremarkable Mood: Other (calm) Affect: Labile (decreasing) Thought Process & Associations: Linear Thought Content: Thought blocking (decreasing) Hallucination Type: Other (remains somewhat internally preoccupied) Delusion Type: None Suicidal Ideation: No Suicidal Plan: No Suicidal Intention: No Homicidal Ideation: No Homicidal Plan: No Homicidal Intention: No Insight: Poor Judgment: Poor Results Vitals/IOs Vital Signs Date Time Temp Pulse Resp B/P (MAP) Pulse Ox O2 Delivery O2 Flow Rate FiO2 04/15/17 06:28 98.2 86 17 122/69 (86) 99 Intake and Output 04/15/17 04/15/17 04/16/17 08:00 16:00 00:00 Intake Total 240 ml 240 ml Balance 240 ml 240 ml Assessment & Plan Problem List: (1) Bipolar disorder, current episode mixed, severe, with psychotic features ICD Codes: F31.64 - Bipolar disorder, current episode mixed, severe, with psychotic features Assessment & Plan Pt improving. Continue current tx plan. Estimated LOS: days Justification for Cont. Inpt. monitoring for safety Request HC Surrog/Guard Advoc?: Leny Adam MD Apr 15, 2017 14:49
[2017-04-15 18:24] VITALS: BP 146/88; PULSE 85; RESP 18; TEMP 97.2; O2SAT 96
[2017-04-15] MEDS: REMOVE OLD NICOTINE PATCH T-DERMAL SCH (21:00)
[2017-04-15] MEDS: traZODone HCL 50 MG TAB PO PRN (22:39)
[2017-04-15] MEDS: IBUPROFEN 400 MG TAB PO PRN (22:40)
[2017-04-16 06:07] VITALS: BP 148/72; PULSE 95; RESP 18; TEMP 97.7; O2SAT 97
[2017-04-16] MEDS: ACETAMINOPHEN 325 MG TAB PO PRN ×2 (06:18→12:41)
[2017-04-16] MEDS: risperiDONE 1 MG TAB PO SCH ×2 (08:44→21:49)
[2017-04-16] MEDS: NYSTATIN 100,000 UNIT/GM CREAM 15 GM TOPICAL SCH (08:46)
--- NOTE | 2017-04-16 14:09 | HHI.PYPN ---
Subjective Chief Complaint: psychosis Remarks Pt seen and discussed with staff. She was labile last night. Today she has been seclusive and paranoid. She has had periods of tearfulness and increased paranoia. She was given 1mg of ativan PO X1 and calmed. No SI/HI. Mental Status Examination Appearance: Appropriate Consciousness: Alert Orientation: Person, Place (at least) Motor Activity: Normal gait (affected foot is booted today), Other (a little less psychomotor slowing today) Speech: Hesitant, Slow (slightly less so) Language: Adequate Fund of Knowledge: Inadequate Attention and Concentration: Inadequate Memory: Unremarkable Mood: Other (calm) Affect: Labile (decreasing) Thought Process & Associations: Linear Thought Content: Thought blocking (decreasing) Hallucination Type: Other (remains somewhat internally preoccupied) Delusion Type: Paranoid Suicidal Ideation: No Suicidal Plan: No Suicidal Intention: No Homicidal Ideation: No Homicidal Plan: No Homicidal Intention: No Insight: Poor Judgment: Poor Results Vitals/IOs Vital Signs Date Time Temp Pulse Resp B/P (MAP) Pulse Ox O2 Delivery O2 Flow Rate FiO2 04/16/17 06:07 97.7 95 18 148/72 (97) 97 Assessment & Plan Problem List: (1) Bipolar disorder, current episode mixed, severe, with psychotic features ICD Codes: F31.64 - Bipolar disorder, current episode mixed, severe, with psychotic features Assessment & Plan Continue risperdal titration. Estimated LOS: days Justification for Cont. Inpt. impairment in reality testing Request HC Surrog/Guard Advoc?: Leny Adam MD Apr 16, 2017 14:08
[2017-04-16 17:12] VITALS: BP 119/61; PULSE 85; RESP 18; TEMP 98.7; O2SAT 98
[2017-04-16] MEDS: REMOVE OLD NICOTINE PATCH T-DERMAL SCH (21:00)
[2017-04-17 05:58] VITALS: BP 109/56; PULSE 66; RESP 16; TEMP 97.8; O2SAT 96
[2017-04-17] MEDS: NYSTATIN 100,000 UNIT/GM CREAM 15 GM TOPICAL SCH (09:00)
[2017-04-17] MEDS: risperiDONE 1 MG TAB PO SCH (09:34)
[2017-04-17] MEDS ORDERED: FLUCONAZOLE 100 MG TAB PO ONE (12:30)
[2017-04-17] MEDS ORDERED: ARIP1TAB14 PO (13:53)
[2017-04-17] MEDS ORDERED: RISP25P IM (13:53)
[2017-04-17] MEDS ORDERED: RISP1 PO (13:53)
--- NOTE | 2017-04-17 13:54 | HHI.DS ---
Psychiatry Discharge Summary Inpatient Psychiatric care?: Yes Advance Directive: No Reason Not Provided: Patient is nonverbal, uncooperative Mental Health AdvanceDirective: No Health Care Proxy: No Admission Admission Date Apr 07, 2017 at 21:30 Admission Diagnosis: (1) Bipolar disorder, current episode mixed, severe, with psychotic features ICD Code: F31.64 - Bipolar disorder, current episode mixed, severe, with psychotic features Brief History Patient is a 26-year-old white female well-known post multiple prior contacts comes here under Barron act by Dr. Zee Eddy [facility] dated April 07 6:19 PM stating bipolar disorder manic delusional and unsafe. Patient seen screened in the ED urine tox culture positive for marijuana. Patient was initially admitted to 2600 unit though her manic behavior so disruptive the unit plus the fact that she was removing her close in the common areas letter being transferred to 2700 unit it appears she has been noncompliant with the medication at home Schrank his bizarre behaviors with her family. At the present time patient laying quietly in her bed on 2700 nurse Geni present throughout session patient is alert did make eye contact with me while she was lying down. However she is selectively mute she is not responding to any of my questions not responding when I attempted to explain the Barron act. At this time patient does meet criteria for involuntary psychiatric hospitalization of the Barron act I'll do first opinion request second opinion. Though I would hope that patient be compliant with her medications once they're offered under the circumstances. Otherwise remain need to consider health care surrogate and guardian advocate. Tobacco Use In Past 30 Days: Refused To Answer Alcohol Use: Never Hospital Course Patient was admitted to a locked, inpatient psychiatric unit. A general medical consultation and podiatry consultation were obtained. Appropriate precautions were in place throughout patient's hospital stay. Patient was seen and examined on the unit by psychiatry and also by counselor. Psychotropic medications were adjusted. The patient was started on long-acting injectable Risperdal Consta. Patient had improvement in presenting psychiatric symptomatology during the course of her hospital stay and in particular improved once the Risperdal was added. Patient's behavior improved with the benefit of psychopharmacologic treatment. She was able to be transitioned to the lower acuity unit from the higher acuity unit without incident. On the day of discharge: Patient seen and examined with nurse. Chart reviewed. Case discussed with nursing staff. No significant behavioral disturbance overnight per nursing staff. Case discussed with counselor. On my examination today, the patient is requesting discharge from the inpatient psychiatric unit today. She denies any suicidal or homicidal ideation, intent or plan on direct questioning and contracts for safety. Mood is good and I can elicit no depressive or hypomanic/manic symptoms beyond some mild residual affective lability. She denies any audiovisual hallucinations, and I can elicit no delusional beliefs. There is no evidence of impairment in reality construction. She denies side effects from medications. We have an extensive discussion regarding her options for long-acting injectable antipsychotic and the risks and benefits of each. The patient has experienced galactorrhea with Invega Sustenna in the past. I have counseled the patient that Risperdal Consta may have the same liability, although it is my hope that the partial dopamine agonism of her Abilify will lessen this effect, should it occur. The patient believes the benefits that she has accrued from the Risperdal outweigh the potential risks and wishes to pursue Risperdal Consta therapy. I have ordered a follow-up prolactin level on discharge. She has no physical complaints today. Suicide and violence risk assessment on day of discharge both suggest lower imminent risk. Substance use is a chronic risk factor, and I have recommended chemical dependency evaluation and treatment on an outpatient basis. The patient says that she wishes to pursue 12 step programming, and I have supported her in this. Patient's level of function appears to be adequate for outpatient care. The patient no longer meets criteria for involuntary psychiatric hospitalization. She is requesting discharge from the inpatient psychiatric unit today, and I have no basis to retain her any longer over her objection. Patient will be discharged today with psychiatric follow-up as arranged by counselor. Patient is also to follow- up with primary care and with podiatry. I have reminded the patient to return to the psychiatric emergency room for any concerning psychiatric symptoms as part of a general safety plan. Results Blood Pressure 109 / 56 Vital Signs Date Time Temp Pulse Resp B/P (MAP) Pulse Ox O2 Delivery O2 Flow Rate FiO2 04/17/17 05:58 97.8 66 16 109/56 (73) 96 Laboratory Results Test 04/08/17 06:43 Cholesterol Level 142 MG/DL (120-200) HDL Cholesterol 41.4 MG/DL (40.0-60.0) Hemoglobin A1c 5.1 % (4.3-6.0) LDL Cholesterol 86 MG/DL (0-99) Triglycerides Level 72 MG/DL (42-150) Summary of Procedures None done Imaging Last Impressions Ankle X-Ray 04/07/17 0000 Signed Impressions: Service Date/Time: Friday, April 07, 2017 17:31 - CONCLUSION: Horizontal fracture base of the fifth metatarsal. Reinaldo Maier MD FACR Pending results at discharge: No Medications # of Antipsychotic meds at D/C: 1 Approp Antipsych med options 1 - Minimum of three failed multiple trials of monotherapy. 2 - Documented plan to taper to monotherapy due to previous use of multiple meds OR cross-taper in progress at D/C. 3 - Documentation of augmentation of Clozapine. 4 - Justification other than those listed in allowable values 1-3, document here : Discharge Discharge Date: Apr 17, 2017 Discharge Diagnosis: (1) Mixed bipolar I disorder in remission Diagnosis: Principal ICD Code: F31.70 - Bipolar disorder, currently in remission, most recent episode unspecified (2) Cannabis abuse Diagnosis: Secondary (counseled to quit) ICD Code: F12.10 - Cannabis abuse, uncomplicated Pt Condition on Discharge: Stable Discharge Disposition: Discharge Home Discharge Instructions Diet Instructions: As Tolerated, No Restrictions Activities you can perform: Weight Bearing as Kj Scheduled Appointment: as per counselor's notes New Orders: PROLACTIN - 2 Weeks X-Ray Ankle Complete - 1 Month New Medications: Risperidone Inj (Risperdal Consta Inj) 25 Mg/2 Ml Inj 25 MG IM Q14D for Mental Health, #2 VIAL 0 Refills This dose of Risperdal Consta is due on 05/01/17. Aripiprazole (Aripiprazole) 20 Mg Tab 30 MG PO DAILY for Mental Health for 15 Days, #23 TAB 1 Refill Risperidone (Risperdal) 1 Mg Tab 2 MG PO BID for Mental Health for 21 Days, #84 TAB 0 Refills Continue oral Risperdal for 3 weeks and then stop. Be sure to get your next Risperdal Consta injection as ordered. Continued Medications: Albuterol 18 GM Inh (Ventolin Hfa 18 GM Inh) 90 Mcg/Act Aer 1 PUFF INH Q4H PRN for SHORTNESS OF BREATH, #1 INHALER 0 Refills Benzonatate (Tessalon Perles) 100 Mg Cap 100 MG PO TID PRN for COUGH, #15 CAP 0 Refills Nystatin Topical (Nystatin Topical) 100,000 unit/gm Cream 1 APPLIC TOPICAL Q12HR for Health for 15 Days, TUBE 1 Refill Apply to rash as directed. Discontinued Medications: Aripiprazole (Aripiprazole) 5 Mg Tab 5 MG PO DAILY for Mental Health for 15 Days, #15 TAB 1 Refill Discharge Time <= 30 minutes Mental Status Examination Appearance: Appropriate Consciousness: Alert Orientation: x4 Motor Activity: Other (no motoric abnormalities noted. No hand tremor, no dystonia, no dyskinesia.) Speech: Unremarkable Language: Adequate Fund of Knowledge: Adequate Attention and Concentration: Adequate Memory: Unremarkable Mood: Appropriate Affect: Other (very mild residual affective lability) Thought Process & Associations: Intact, Logical, Goal directed, Linear Thought Content: Appropriate Hallucination Type: None, Other (remains somewhat internally preoccupied) Delusion Type: None Suicidal Ideation: No Suicidal Plan: No Suicidal Intention: No Homicidal Ideation: No Homicidal Plan: No Homicidal Intention: No Insight: Fair Judgment: Adequate (fair) Discharge/Advance Care Plan Health Problems: (1) Bipolar disorder, current episode mixed, severe, with psychotic features Goals to promote your health * To prevent worsening of your condition and complications * To maintain your health at the optimal level Directions to meet your goals Take your medications as prescribed Follow your dietary instruction Follow activity as directed Keep your appointments as scheduled Take your immunizations and boosters as scheduled If your symptoms worsen call your PCP, if no PCP go to Urgent Care Center or Emergency Room For 07/11 questions related to your inpatient stay or results of tests pending at discharge, please contact Dr. Bandar Cain at Smoking is Dangerous to Your Health. Avoid second hand smoking Bandar Cain MD Apr 17, 2017 13:54
[2017-04-17] MEDS ORDERED: risperiDONE EXT REL INJ 25 MG/2 ML VIAL IM ONE (14:00)
== END 2017-04-17 17:35 | disposition home or self-care (01) | DRG 885 ==
LOC: NEPC 11:49 → NEDA 21:30 → H260 22:13 → H270 04-08 12:00 → H260 04-12 13:40
PROVIDERS: ADMIT Psychiatry & Neurology Psychiatry; ATTEND Psychiatry & Neurology Psychiatry
DX: F31.64 Bipolar disorder, current episode mixed, severe, with psychotic features (principal); Z91.14 Patient's other noncompliance with medication regimen; R45.851 Suicidal ideations; E66.3 Overweight; F94.0 Selective mutism; S92.354A Nondisplaced fracture of fifth metatarsal bone, right foot, initial encounter for closed fracture; F12.10 Cannabis abuse, uncomplicated; F17.210 Nicotine dependence, cigarettes, uncomplicated; F41.9 Anxiety disorder, unspecified; X50.1XXA Overexertion from prolonged static or awkward postures, initial encounter; Y93.51 Activity, roller skating (inline) and skateboarding; Z68.39 Body mass index [BMI] 39.0-39.9, adult
CPT/HCPCS: 29515; 73600; 80048; 80053; 80061; 80307; 83036; 83735; 84703; 85025; 93005; 96361; 96374; 99282; J2060; J2794; J7030; L2114; Q0163

== ENCOUNTER 2017-05-15 10:02 | Emergency (ER) | payer OTHER ==
[~2017-05-15] VITALS: Ht 170.2 cm; Wt 127.0 kg
[~2017-05-15 10:02] MED LIST changes: -ARIP1TAB11 PO; +ARIP1TAB14 PO; +RISP1 PO; +RISP25P IM
[2017-05-15 10:04] VITALS: BP 127/78; PULSE 98; RESP 18; TEMP 98.3; O2SAT 97
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
[2017-05-15] MEDS ORDERED: DEPA500T3 PO (11:21)
[2017-05-15] MEDS ORDERED: SAPH10SU3 SL (11:21)
== END 2017-05-15 11:23 | disposition home or self-care (01) ==
LOC: NEPK 10:02
DX: S92.354D Nondisplaced fracture of fifth metatarsal bone, right foot, subsequent encounter for fracture with routine healing (principal); F31.9 Bipolar disorder, unspecified; X58.XXXA Exposure to other specified factors, initial encounter
CPT/HCPCS: 99281

== ENCOUNTER 2017-06-03 07:56 | Emergency (ER) | payer OTHER ==
[~2017-06-03 07:56] MED LIST changes: -ARIP1TAB14 PO; -BENZ100 PO; +DEPA500T3 PO; -NYST15T TOPICAL; -RISP1 PO; -RISP25P IM; +SAPH10SU3 SL
[2017-06-03 08:02] VITALS: BP 136/98; PULSE 127; RESP 12; TEMP 98.2; O2SAT 98
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
[2017-06-03] MEDS ORDERED: LORazepam 1 MG TAB PO ONE (09:00)
[2017-06-03 11:01] LABS: AMORPHOUS SEDIMENT, URINE RARE; BACTERIA, URINE FEW /hpf; BILIRUBIN, URINE NEG (NEG); BLOOD, URINE TRACE (NEG); GLUCOSE,URINE NEG (NEG); KETONE, URINE TRACE mg/dL (NEG); MUCUS URINE FEW /lpf (OCC); NITRITE,URINE NEG (NEG); PH, URINE 6.5 (5.0-8.5); SQUAMOUS EPITHELIAL CELL URINE 8 /hpf (0-5); URINE COLOR YELLOW (YELLW/STRAW); URINE LEUKOCYTE ESTERASE MOD (NEG)
[2017-06-03] MEDS ORDERED: BACT800T5 PO (11:31)
[2017-06-03 12:03] LABS: AUTOMATED NEUTROPHIL # 10.8 TH/MM3 (1.8-7.7); BASOPHIL # 0.1 TH/MM3 (0-0.2); BASOPHIL % 0.5 % (0.0-2.0); EOSINOPHIL # 0.3 TH/MM3 (0-0.4); EOSINOPHIL % 1.9 % (0.0-4.0); HEMATOCRIT 37.4 % (35.0-46.0); HEMOGLOBIN 12.5 GM/DL (11.6-15.3); LYMPH % 20.2 % (9.0-44.0); LYMPHOCYTE # 3.2 TH/MM3 (1.0-4.8); MEAN CELL VOLUME 88.7 FL (80.0-100.0); MEAN CORPUSCULAR HEMOGLOBIN 29.7 PG (27.0-34.0); MEAN CORPUSCULAR HGB CONC 33.4 % (32.0-36.0); MONO % 8.3 % (0.0-8.0); MONOCYTE # 1.3 TH/MM3 (0-0.9); NEUT % 69.1 % (16.0-70.0); PLATELET COUNT 295 TH/MM3 (150-450); RED BLOOD COUNT 4.22 MIL/MM3 (4.00-5.30); RED CELL DISTRIBUTION WIDTH 13.7 % (11.6-17.2); WHITE BLOOD COUNT 15.6 TH/MM3 (4.0-11.0)
[2017-06-03 12:21] LABS: ALT (GPT) 16 U/L (10-53)
[2017-06-03 12:23] LABS: ALKALINE PHOSPHATASE 78 U/L (45-117); TOTAL BILIRUBIN ADULT 0.3 MG/DL (0.2-1.0); TOTAL PROTEIN 7.5 GM/DL (6.4-8.2)
[2017-06-03 12:41] LABS: ALBUMIN 3.7 GM/DL (3.4-5.0); AST (GOT) 18 U/L (15-37); BICARBONATE 24.3 MEQ/L (21.0-32.0); BLOOD UREA NITROGEN 9 MG/DL (7-18); CALCIUM 8.8 MG/DL (8.5-10.1); CHLORIDE 107 MEQ/L (98-107); CREATININE 0.57 MG/DL (0.50-1.00); GLOMERULAR FILTRATION RATE 128 ML/MIN (>89); GLUCOSE,RANDOM 59 MG/DL (74-106); SODIUM (NA) 139 MEQ/L (136-145)
== END 2017-06-03 14:23 | disposition home or self-care (01) ==
LOC: NEPC 07:56
DX: F29 Unspecified psychosis not due to a substance or known physiological condition (principal); N30.01 Acute cystitis with hematuria; F20.9 Schizophrenia, unspecified; F31.9 Bipolar disorder, unspecified; F41.9 Anxiety disorder, unspecified
CPT/HCPCS: 80053; 80307; 81001; 84703; 85025; 87086; 99283

== ENCOUNTER 2017-06-12 16:11 | Inpatient (IN) | payer OTHER ==
[~2017-06-12] VITALS: Ht 170.2 cm; Wt 121.6 kg
[~2017-06-12 16:11] MED LIST changes: +BACT800T5 PO
[2017-06-12 16:29] VITALS: BP 128/83; PULSE 76; TEMP 98.7; O2SAT 97
[2017-06-12 16:35] VITALS: BP 128/83; PULSE 76; RESP 16; TEMP 98.7; O2SAT 97
[2017-06-12 16:44] LABS: BASOPHIL # 0.1 TH/MM3 (0-0.2); BASOPHIL % 0.8 % (0.0-2.0); EOSINOPHIL # 0.2 TH/MM3 (0-0.4); EOSINOPHIL % 1.9 % (0.0-4.0); HEMATOCRIT 38.4 % (35.0-46.0); HEMOGLOBIN 12.8 GM/DL (11.6-15.3); LYMPHOCYTE # 3.2 TH/MM3 (1.0-4.8); MEAN CELL VOLUME 86.6 FL (80.0-100.0); MEAN CORPUSCULAR HEMOGLOBIN 28.8 PG (27.0-34.0); MEAN CORPUSCULAR HGB CONC 33.3 % (32.0-36.0); MONOCYTE # 0.9 TH/MM3 (0-0.9); NEUT % 61.3 % (16.0-70.0); PLATELET COUNT 263 TH/MM3 (150-450); RED BLOOD COUNT 4.43 MIL/MM3 (4.00-5.30); RED CELL DISTRIBUTION WIDTH 13.4 % (11.6-17.2); WHITE BLOOD COUNT 11.5 TH/MM3 (4.0-11.0)
[2017-06-12 16:58] LABS: AST (GOT) 14 U/L (15-37); BICARBONATE 27.6 MEQ/L (21.0-32.0); BLOOD UREA NITROGEN 8 MG/DL (7-18); CHLORIDE 106 MEQ/L (98-107); CREATININE 0.73 MG/DL (0.50-1.00); GLOMERULAR FILTRATION RATE 96 ML/MIN (>89); GLUCOSE,RANDOM 76 MG/DL (74-106); SODIUM (NA) 140 MEQ/L (136-145)
[2017-06-12 16:59] LABS: ALT (GPT) 15 U/L (10-53)
[2017-06-12 17:01] LABS: ALKALINE PHOSPHATASE 77 U/L (45-117); TOTAL BILIRUBIN ADULT 0.4 MG/DL (0.2-1.0); TOTAL PROTEIN 7.6 GM/DL (6.4-8.2)
[2017-06-12 17:11] LABS: BACTERIA, URINE FEW /hpf; BILIRUBIN, URINE NEG (NEG); BLOOD, URINE SMALL (NEG); GLUCOSE,URINE NEG (NEG); KETONE, URINE 10 mg/dL (NEG); MUCUS URINE FEW /lpf (OCC); NITRITE,URINE NEG (NEG); PH, URINE 5.5 (5.0-8.5); SQUAMOUS EPITHELIAL CELL URINE 5 /hpf (0-5); URINE COLOR YELLOW (YELLW/STRAW); URINE LEUKOCYTE ESTERASE LARGE (NEG)
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
[2017-06-12] MEDS ORDERED: ACETAMINOPHEN 325 MG TAB PO ONE (17:45)
[2017-06-12] MEDS ORDERED: NITROFURANTOIN MONOHYD MACROCR 100 MG CAP PO ONE (17:45)
[2017-06-12 22:49] VITALS: BP 114/55; PULSE 77; RESP 16
[2017-06-13 02:31] VITALS: BP 102/56; PULSE 60; RESP 18; O2SAT 98
[2017-06-13] MEDS ORDERED: SAPH10SU3 SL (02:37)
[2017-06-13] MEDS ORDERED: DEPA500T3 PO (02:37)
[2017-06-13 05:45] VITALS: BP 125/65; PULSE 66; RESP 16; TEMP 97.8; O2SAT 98
[2017-06-13] MEDS ORDERED: MAGNESIUM HYDROXIDE SUSP 30 ML CUP PO PRN (06:15)
[2017-06-13] MEDS ORDERED: hydrOXYzine HCL 50 MG TAB PO PRN (06:15)
[2017-06-13] MEDS ORDERED: ACETAMINOPHEN 325 MG TAB PO PRN (06:15)
[2017-06-13] MEDS ORDERED: diphenhydrAMINE HCL 50 MG/ML VIAL - HS PRN IM (06:15)
[2017-06-13] MEDS ORDERED: ALUMINUM/MAGNESIUM/SIMETH 30 ML CUP PO PRN (06:15)
[2017-06-13] MEDS ORDERED: diphenhydrAMINE HCL 50 MG CAP - HS PRN PO (06:15)
[2017-06-13] MEDS: DIVALPROEX SODIUM E.R. 500 MG TAB PO SCH ×2 (09:00→20:55)
[2017-06-13] MEDS ORDERED: ASENAPINE 10 MG SL SCH (09:00)
[2017-06-13] MEDS ORDERED: [UNRECOGNIZED DRUG - OTHER] SL SCH (09:00)
[2017-06-13] MEDS ORDERED: NICOTINE 21 MG/24 HR PATCH T-DERMAL SCH (09:00)
[2017-06-13] MEDS: PALIPERIDONE ER 6 MG TAB PO SCH (15:02)
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
--- NOTE | 2017-06-13 17:46 | PD.CONS ---
HPI Service [facility] Consult Requested By Psychiatry Reason for Consult Medical management Primary Care Physician Unknown Diagnoses: History of Present Illness 26 years female with a PMH of Bipolar disorder, Asthma was brought to the ED and subsequently admitted to inpatient psychiatry under bermudez act for suicidal ideation. Patient states she has been feeling worthless and depressed since the passing of her Mother. She had wanted to end her life. Patient also reported unprotected sexual intercourse yesterday with a stranger in exchange for some crack cocaine .She states she has recently been tested for HIV by her PCP however does not know the result yet. She complains of dysuria and urinary retention Review of Systems Except as stated in HPI: all other systems reviewed are Neg Past Family Social History Allergies: Coded Allergies: No Known Allergies (Verified Allergy, Unknown, 06/03/17) Past Medical History Bipolar disorder Asthma Past Surgical History ear tube placement Reported Medications see EMR Family History Noncontributory Social History +use of illicit drug Physical Exam Vital Signs Vital Signs Date Time Temp Pulse Resp B/P (MAP) Pulse Ox O2 Delivery O2 Flow Rate FiO2 06/13/17 05:45 97.8 66 16 125/65 (85) 98 06/13/17 05:41 06/13/17 02:31 60 18 102/56 (71) 98 Room Air 06/12/17 22:49 77 16 114/55 (74) Physical Exam GENERAL: This is a well-nourished, well-developed patient, in no apparent distress. SKIN: No rashes, ecchymoses or lesions. Cool and dry. HEAD: Atraumatic. Normocephalic. No temporal or scalp tenderness. EYES: Pupils equal round and reactive. Extraocular motions intact. No scleral icterus. No injection or drainage. ENT: Nose without bleeding, purulent drainage or septal hematoma. Throat without erythema, tonsillar hypertrophy or exudate. Uvula midline. Airway patent. NECK: Trachea midline. No JVD or lymphadenopathy. Supple, nontender, no meningeal signs. CARDIOVASCULAR: Regular rate and rhythm without murmurs, gallops, or rubs. RESPIRATORY: Clear to auscultation. Breath sounds equal bilaterally. No wheezes , rales, or rhonchi. GASTROINTESTINAL: Abdomen soft, non-tender, nondistended. No hepato-splenomegaly , or palpable masses. No guarding. MUSCULOSKELETAL: Extremities without clubbing, cyanosis, or edema. No joint tenderness, effusion, or edema noted. No calf tenderness. Negative Homans sign bilaterally. NEUROLOGICAL: Awake and alert. Cranial nerves II through XII intact. Motor and sensory grossly within normal limits. Five out of 5 muscle strength in all muscle groups. Normal speech. Laboratory Date/Time Source Procedure Growth Status 06/12/17 16:49 Urine Clean Catch Urine Culture - Final 10-50,000 CFU/ML MIXED GRAM POSITIVE ... Complete Result Diagram: 06/12/17 1630 06/12/17 1630 Assessment and Plan Assessment and Plan 26 years old female with Bipolar disorder with depressed mood Management per Psychiatry Abnormal UA Start Cipro 500mg BID Rule out STIs GC and chlamydia PCR Recommend HIV test History of Asthma No exacerbation currently on room air DVT prophylaxis: Encourage ambulation Thank you for this consultation Code Status Full code Discussed Condition With patient, Christo Hoyos MD Jun 13, 2017 17:46
[2017-06-13 18:30] VITALS: BP 114/67; PULSE 60; RESP 18; TEMP 98.2; O2SAT 98
[2017-06-13] MEDS: CIPROFLOXACIN 500 MG TAB PO SCH (20:54)
[2017-06-13] MEDS ORDERED: REMOVE OLD NICOTINE PATCH T-DERMAL SCH (21:00)
[2017-06-14 06:15] VITALS: BP 108/59; PULSE 77; RESP 18; TEMP 98.2; O2SAT 96
[2017-06-14] MEDS: DIVALPROEX SODIUM E.R. 500 MG TAB PO SCH ×2 (08:15→21:27)
[2017-06-14] MEDS: CIPROFLOXACIN 500 MG TAB PO SCH ×2 (08:15→21:27)
[2017-06-14] MEDS: PALIPERIDONE ER 6 MG TAB PO SCH (08:15)
[2017-06-14 08:43] LABS: BICARBONATE 28.7 MEQ/L (21.0-32.0); BLOOD UREA NITROGEN 11 MG/DL (7-18); CALCIUM 8.5 MG/DL (8.5-10.1); CHLORIDE 105 MEQ/L (98-107); CHOLESTEROL 159 MG/DL (120-200); CREATININE 0.73 MG/DL (0.50-1.00); GLOMERULAR FILTRATION RATE 96 ML/MIN (>89); GLUCOSE,RANDOM 87 MG/DL (74-106); SODIUM (NA) 140 MEQ/L (136-145)
[2017-06-14 08:46] LABS: CHOLESTEROL/ HDL RATIO 4.54 RATIO; LDL CHOLESTEROL 101 MG/DL (0-99); TRIGLYCERIDES 115 MG/DL (42-150)
[2017-06-14 10:46] LABS: HEMOGLOBIN A1C 5.5 % (4.3-6.0)
--- NOTE | 2017-06-14 17:00 | HHI.PYPN ---
Subjective Remarks Patient seen for follow-up, chart reviewed. Discussion nursing staff reported the patient continued to be noted to be irritable, depressed as well as expressed sadness over the loss of her mother couple of months ago. Patient was found participating in day group notably, cooperative. Patient states that she slept well last night but reporting that she "almost peed myself" we will try to sleep without having sleepy today. Patient continues to follow feeling depressed below feels slightly less but noticed to feel sad during groups which she wanted to be older process her current grief with her loss of her mother as well as previous traumatic experiences. Patient continues to endorse auditory hallucinations which, times where she is recalling past traumatic experiences of feeling depressed. Patient reports tolerating medications well with no adverse drug reactions. Review of Systems Except as stated in HPI: all other systems reviewed are Neg Mental Status Examination Appearance: Appropriate Consciousness: Alert Orientation: Person, Place, Date/Time Motor Activity: Normal gait Speech: Unremarkable Language: Adequate Fund of Knowledge: Inadequate Attention and Concentration: Adequate Memory: Unremarkable Mood: Sad, Anxious Affect: Sad, Other (tearful throughout interview) Thought Process & Associations: Linear Thought Content: Hallucinations Hallucination Type: Auditory Delusion Type: Paranoid Suicidal Ideation: Yes Suicidal Plan: Yes Suicidal Intention: Yes Homicidal Ideation: No Homicidal Plan: No Homicidal Intention: No Insight: Poor Judgment: Poor Results Labs labs reviewed Test 06/14/17 07:24 Blood Urea Nitrogen 11 MG/DL Creatinine 0.73 MG/DL Random Glucose 87 MG/DL Calcium Level 8.5 MG/DL Sodium Level 140 MEQ/L Potassium Level 3.8 MEQ/L Chloride Level 105 MEQ/L Carbon Dioxide Level 28.7 MEQ/L Anion Gap 6 MEQ/L Estimat Glomerular Filtration Rate 96 ML/MIN Hemoglobin A1c 5.5 % Triglycerides Level 115 MG/DL Cholesterol Level 159 MG/DL LDL Cholesterol 101 MG/DL HDL Cholesterol 35.0 MG/DL Cholesterol/HDL Ratio 4.54 RATIO Valproic Acid (Depakene) Level 24 MCG/ML Date/Time Source Procedure Growth Status 06/12/17 16:49 Urine Clean Catch Urine Culture - Final 10-50,000 CFU/ML MIXED GRAM POSITIVE ... Complete Vitals/IOs Vital Signs Date Time Temp Pulse Resp B/P (MAP) Pulse Ox O2 Delivery O2 Flow Rate FiO2 06/14/17 06:15 98.2 77 18 108/59 (75) 96 06/13/17 02:31 Room Air Intake and Output 06/14/17 06/14/17 06/15/17 08:00 16:00 00:00 Intake Total 360 ml Balance 360 ml Assessment & Plan Problem List: (1) Bipolar disorder current episode depressed ICD Codes: F31.30 - Bipolar disorder, current episode depressed, mild or moderate severity, unspecified Status: Acute Assessment & Plan Patient this time continues to endorse feeling depressed along with auditory hallucinations. Patient continues to be very dysphoric and tearful throughout interview but denied any suicide ideations today. We will continue current treatment, continue to monitor mood and behavior. Brief supportive psychotherapy provided. Discharge planning in progress. Justification for Cont. Inpt. At risk for further decompensation at lower level of care. Discharge Planning Back to her boyfriend's residence once psychiatrically stable. Problem Qualifiers (1) Bipolar disorder current episode depressed: Qualified Codes: F31.30 - Bipolar disorder, current episode depressed, mild or moderate severity, unspecified Christo Chou MD Jun 14, 2017 17:00
[2017-06-15 05:23] VITALS: BP 113/55; PULSE 59; RESP 16; TEMP 97.7; O2SAT 97
[2017-06-15] MEDS: PALIPERIDONE ER 6 MG TAB PO SCH (08:08)
[2017-06-15] MEDS: CIPROFLOXACIN 500 MG TAB PO SCH ×2 (08:08→20:26)
[2017-06-15] MEDS: DIVALPROEX SODIUM E.R. 500 MG TAB PO SCH ×2 (08:08→20:26)
[2017-06-15] MEDS ORDERED: IBUPROFEN 400 MG TAB PO PRN (10:15)
--- NOTE | 2017-06-15 12:14 | HHI.PYPN ---
Subjective Remarks Reviewed electronic medical record and labs. Discussed patient case with staff. Patient was examined for follow-up in the exam room with MESHA Reyes present. Staff had reported patient's mood is labile, which quickly became evident during interview. When asked how she was doing patient became tearful. She reports that she slept well last night, woke up rested this morning, and ate breakfast. She advised that she is aware she has been lashing out at staff , and other patients, and apologized to the nurse for her behavior. She advises that she "feels guilty" about her past. She expressed concern over possible STI. Reviewed with patient that her chlamydia and gonorrhea test had been negative. She reports being told by her doctor that she is positive for HSV. She also states that she has a "sore down there". Ibuprofen 400 mg every 8 hours ordered for vaginal discomfort. Educated patient on HSV. At this time she denies thoughts of self-harm, homicidal ideations, auditory hallucinations, visual hallucinations, and does not appear to be delusional. Her mood is depressed. Her speech is clear, logical, and organized. She reports that she has been attending group and states, "I want to do whatever you guys tell me to do, I just want some real help". Patient's Depakote level still subtherapeutic. A repeat valproic acid level is ordered for tomorrow. Mental Status Examination Appearance: Appropriate Consciousness: Alert Orientation: Person, Place, Date/Time Motor Activity: Normal gait Speech: Unremarkable Language: Adequate Fund of Knowledge: Inadequate Attention and Concentration: Adequate Memory: Unremarkable Mood: Sad, Anxious Affect: Sad, Other (tearful throughout interview) Thought Process & Associations: Linear Thought Content: Appropriate Hallucination Type: None Delusion Type: None, Paranoid Suicidal Ideation: No Suicidal Plan: No Suicidal Intention: No Homicidal Ideation: No Homicidal Plan: No Homicidal Intention: No Insight: Poor Judgment: Poor Results Labs Date/Time Source Procedure Growth Status 06/12/17 16:49 Urine Clean Catch Urine Culture - Final 10-50,000 CFU/ML MIXED GRAM POSITIVE ... Complete Vitals/IOs Vital Signs Date Time Temp Pulse Resp B/P (MAP) Pulse Ox O2 Delivery O2 Flow Rate FiO2 06/15/17 05:23 97.7 59 16 113/55 (74) 97 06/13/17 02:31 Room Air Assessment & Plan Problem List: (1) Bipolar disorder current episode depressed ICD Codes: F31.30 - Bipolar disorder, current episode depressed, mild or moderate severity, unspecified Status: Acute Assessment & Plan Estimated LOS: Patient continues to present depressed and tearful. Staff reports that she continues to be fairly impulsive, labile, and irritable. Her medication remains in the subtherapeutic range. We will continue to monitor patient, check her Depakote level, and adjust as required until psychiatrically stable. Justification for Cont. Inpt. This patient would decompensate if placed in a lower level of care. Problem Qualifiers (1) Bipolar disorder current episode depressed: Qualified Codes: F31.30 - Bipolar disorder, current episode depressed, mild or moderate severity, unspecified Connie Hodges Jun 15, 2017 12:14
[2017-06-15 17:38] VITALS: BP 123/59; PULSE 76; RESP 18; TEMP 97.6; O2SAT 99
[2017-06-16 05:03] VITALS: BP 107/57; PULSE 62; RESP 16; TEMP 98; O2SAT 97
[2017-06-16] MEDS: PALIPERIDONE ER 6 MG TAB PO SCH (09:03)
[2017-06-16] MEDS: DIVALPROEX SODIUM E.R. 500 MG TAB PO SCH (09:03)
[2017-06-16] MEDS: CIPROFLOXACIN 500 MG TAB PO SCH (09:03)
[2017-06-16] MEDS ORDERED: DEPA500T3 PO (10:50)
[2017-06-16] MEDS ORDERED: INVE6TAB3 PO (10:50)
[2017-06-16] MEDS ORDERED: CIPR-9 PO (10:50)
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
== END 2017-06-16 14:30 | disposition home or self-care (01) | DRG 885 ==
LOC: NEDAMB 16:11 → NEDA 06-13 05:32 → H260 06-13 05:45
PROVIDERS: ADMIT Student in an Organized Health Care Education/Training Program; ATTEND Student in an Organized Health Care Education/Training Program
DX: F31.31 Bipolar disorder, current episode depressed, mild (principal); R45.851 Suicidal ideations; J45.909 Unspecified asthma, uncomplicated; F12.90 Cannabis use, unspecified, uncomplicated; F14.90 Cocaine use, unspecified, uncomplicated; F41.9 Anxiety disorder, unspecified; Z81.8 Family history of other mental and behavioral disorders; Z63.4 Disappearance and death of family member; Z91.5 Personal history of self-harm
CPT/HCPCS: 80048; 80053; 80061; 80164; 80307; 81001; 83036; 84146; 84703; 85025; 87086; 87491; 87591; 99285; Q0163

== ENCOUNTER 2017-08-03 13:01 | Emergency (ER) | payer OTHER ==
[~2017-08-03] VITALS: Ht 170.2 cm; Wt 125.0 kg
[~2017-08-03 13:01] MED LIST changes: -BACT800T5 PO; +CIPR-9 PO; +INVE6TAB3 PO; -SAPH10SU3 SL; -VENTAER INH
[2017-08-03 13:13] VITALS: BP 132/74; PULSE 97; RESP 21; TEMP 99.2; O2SAT 98
[2017-08-03 14:42] LABS: AUTOMATED NEUTROPHIL # 10.1 TH/MM3 (1.8-7.7); BASOPHIL # 0.1 TH/MM3 (0-0.2); BASOPHIL % 0.4 % (0.0-2.0); EOSINOPHIL # 0.2 TH/MM3 (0-0.4); EOSINOPHIL % 1.6 % (0.0-4.0); HEMATOCRIT 40.3 % (35.0-46.0); HEMOGLOBIN 13.6 GM/DL (11.6-15.3); LYMPH % 19.2 % (9.0-44.0); LYMPHOCYTE # 2.6 TH/MM3 (1.0-4.8); MEAN CELL VOLUME 85.9 FL (80.0-100.0); MEAN CORPUSCULAR HGB CONC 33.8 % (32.0-36.0); MEAN PLATELET VOLUME 8.1 FL (7.0-11.0); MONO % 4.3 % (0.0-8.0); MONOCYTE # 0.6 TH/MM3 (0-0.9); NEUT % 74.5 % (16.0-70.0); PLATELET COUNT 286 TH/MM3 (150-450); RED BLOOD COUNT 4.69 MIL/MM3 (4.00-5.30); RED CELL DISTRIBUTION WIDTH 13.5 % (11.6-17.2); WHITE BLOOD COUNT 13.5 TH/MM3 (4.0-11.0)
[2017-08-03] MEDS ORDERED: SODIUM CHLOR 0.9% 250 ML INJ 250 ML IV ONE (15:30)
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
[2017-08-03 16:37] LABS: BILIRUBIN, URINE NEG (NEG); BLOOD, URINE TRACE (NEG); GLUCOSE,URINE NEG (NEG); HYALINE CAST, URINE 21 /lpf (RARE); KETONE, URINE TRACE mg/dL (NEG); MUCUS URINE MANY /lpf (OCC); NITRITE,URINE NEG (NEG); SQUAMOUS EPITHELIAL CELL URINE 7 /hpf (0-5); URINE COLOR YELLOW (YELLW/STRAW); URINE LEUKOCYTE ESTERASE LARGE (NEG)
== END 2017-08-03 17:12 | disposition left against medical advice (07) ==
LOC: NEPD 13:01
DX: O26.851 Spotting complicating pregnancy, first trimester (principal); R82.99 Other abnormal findings in urine; F31.9 Bipolar disorder, unspecified; F41.8 Other specified anxiety disorders; Z72.0 Tobacco use; Z87.440 Personal history of urinary (tract) infections; Z53.20 Procedure and treatment not carried out because of patient's decision for unspecified reasons; Z3A.01 Less than 8 weeks gestation of pregnancy
CPT/HCPCS: 81001; 84702; 85025; 87086; 99283

== ENCOUNTER 2017-10-01 01:06 | Emergency (ER) | payer OTHER ==
[2017-10-01] MEDS ORDERED: LACTATED RINGER'S 1000 ML INJ 1,000 ML IV SCH (01:43)
--- NOTE | 2017-10-01 01:43 | PD ---
HPI Chief Complaint N/V, dizziness Travel History International Travel<30 Days: No Contact w/Intl Traveler<30Days: No Known Affected Area: No History of Present Illness HPI 27-year-old 020, IUP at 16.5 CARE comp gated by asthma, obesity, uterine didelphis The patient presents reporting symptoms of dizziness that started at 5 PM when she presented to work at [employer]. She reports she has had nausea and vomiting since 5 PM and was not able to keep any food without throwing up. She reports she has drank lots of water today however was at the beach until about 2 PM she reports that she has some sharp stabbing pains that are worse with movement. These pains are knifelike and only lasts for a few seconds. She reports that she has felt normal movement. She denies any leaking of fluid or vaginal bleeding. She denies any painful cramping or contractions. Weeks Gestation: 16 Para: 0 : 3 Miscarriage: 2 History Past Medical History Narrative Medical Asthma Obesity Didelphys uterus Obstetric History Obstetric History SAB 2 History of HSV-1, HSV-2 History of HPV History of gonorrhea History of trichomonas Past Surgical History Narrative Surgical PE tube Family History Narrative Family History DM CAD MT Allergies-Medications (Allergen,Severity, Reaction): Coded Allergies: No Known Allergies (Verified Allergy, Unknown, 10/04/17) Home Meds Active Scripts Mupirocin Topical (Bactroban Topical) 22 Gm Cream, 1 APPLIC TOPICAL TID for Mgmt Bacterial Infection for 7 Days, #1 TUBE 0 Refills Prov:Jayshree Castro MD 10/04/17 Cephalexin (Keflex) 500 Mg Capsule, 500 MG PO QID for Infection for 7 Days, CAP 0 Refills Prov:Jayshree Castro MD 10/04/17 Paliperidone ER (Invega) 6 Mg Tab, 6 MG PO DAILY for health for 30 Days, #30 TAB Prov:Christo Chou MD 06/16/17 Divalproex ER (Depakote ER) 500 Mg Nai, 500 MG PO Q12HR for health for 30 Days , #60 TAB Prov:Christo Chou MD 06/16/17 Ciprofloxacin (Cipro) 500 Mg Tab, 500 MG PO Q12HR for health for 4 Days, #7 TAB Prov:Christo Chou MD 06/16/17 Reported Medications Divalproex ER (Depakote ER) 500 Mg Nai, 500 MG PO BID for Control Seizures, # 30 TAB 0 Refills 06/13/17 Review of Systems Except as stated in HPI: all other systems reviewed are Neg Physical Exam Narrative GENERAL: Well-nourished, well-developed patient. SKIN: Warm and dry. HEAD: Normocephalic and atraumatic. EYES: No scleral icterus. No injection or drainage. ENT: No nasal drainage noted. Mucous membranes pink. Airway patent. NECK: Supple, trachea midline. No JVD. CARDIOVASCULAR: Regular rate and rhythm without murmurs, gallops, or rubs. RESPIRATORY: Breath sounds equal bilaterally. No accessory muscle use. BREASTS: Deferred ABDOMEN/GI: Abdomen soft, non-tender, bowel sounds present, no rebound, no guarding Gravid GENITOURINARY: Deferred FHT's: heart tones by Doppler as per OB trace view EXTREMITIES: No cyanosis or edema. BACK: Nontender without obvious deformity. NEUROLOGICAL/musculoskeletal: Awake and alert. Motor and sensory grossly within normal limits. Grossly normal muscle strength in all muscle groups. Normal speech. Grossly normal range of motion, gait Psychiatric: Grossly normal memory/affect Data Data Orders Orders Vital Signs (Adult) .ON ADMISSION (10/01/17 01:34) ^ Labor Status (10/01/17 01:34) Urinalysis - C+S If Indicated (10/01/17 01:34) ^ Non Stress Test (10/01/17 01:34) Cbc No Diff, Includes Plts (10/01/17 01:34) Comprehensive Metabolic Panel (10/01/17 01:34) Basic Metabolic Panel (Bmp) (10/01/17 01:34) MDM Plan Assessment/plan: 1. IUP at 16.5 2. Dizziness: Dizziness is likely secondary to dehydration from participating in Beach activities all day without adequate hydration. The patient's urine is concentrated. We discussed proper hydration and the importance of good hydration for her and the wellbeing. Patient feels better after IVF x2L, labs appropriate as per EMR. 3. Nausea/vomiting: resolved, may be secondary to dehydration or other etiology. 4. Asthma: No issues 5. Obesity 6. Multiple STDs 7. No evidence of labor, strict labor precautions. The sharp pains are likely round ligament stretching or other similar etiology. 8. Follow-up with primary OB in 2-3 days or sooner if needed Diagnosis Diagnosis: Primary Impression: 16 weeks gestation of Additional Impression: Dehydration Disposition: 01 DISCHARGE HOME Condition: Elizabeth Darnell MD Oct 01, 2017 01:43
[2017-10-01] MEDS ORDERED: ONDANSETRON ODT 4 MG TAB PO ONE (01:45)
[2017-10-01 01:59] LABS: HEMATOCRIT 33.5 % (35.0-46.0); HEMOGLOBIN 11.5 GM/DL (11.6-15.3); MEAN CORPUSCULAR HEMOGLOBIN 29.5 PG (27.0-34.0); MEAN CORPUSCULAR HGB CONC 34.3 % (32.0-36.0); MEAN PLATELET VOLUME 8.2 FL (7.0-11.0); PLATELET COUNT 244 TH/MM3 (150-450); RED BLOOD COUNT 3.89 MIL/MM3 (4.00-5.30); RED CELL DISTRIBUTION WIDTH 12.8 % (11.6-17.2); WHITE BLOOD COUNT 14.9 TH/MM3 (4.0-11.0)
[2017-10-01 02:10] LABS: BACTERIA, URINE FEW /hpf; BILIRUBIN, URINE NEG (NEG); BLOOD, URINE SMALL (NEG); GLUCOSE,URINE 50 mg/dL (NEG); KETONE, URINE 20 mg/dL (NEG); MUCUS URINE MANY /lpf (OCC); NITRITE,URINE NEG (NEG); SQUAMOUS EPITHELIAL CELL URINE 14 /hpf (0-5); URINE COLOR YELLOW (YELLW/STRAW); URINE LEUKOCYTE ESTERASE MOD (NEG)
[2017-10-01 02:14] LABS: ALBUMIN 3.4 GM/DL (3.4-5.0); ALT (GPT) 17 U/L (10-53); AST (GOT) 9 U/L (15-37); BICARBONATE 20.9 MEQ/L (21.0-32.0); BLOOD UREA NITROGEN 5 MG/DL (7-18); CALCIUM 8.5 MG/DL (8.5-10.1); CHLORIDE 108 MEQ/L (98-107); CREATININE 0.57 MG/DL (0.50-1.00); GLOMERULAR FILTRATION RATE 127 ML/MIN (>89); GLUCOSE,RANDOM 93 MG/DL (74-106); SODIUM (NA) 141 MEQ/L (136-145)
[2017-10-01 02:16] LABS: ALKALINE PHOSPHATASE 52 U/L (45-117); TOTAL BILIRUBIN ADULT 0.5 MG/DL (0.2-1.0); TOTAL PROTEIN 7.1 GM/DL (6.4-8.2)
== END 2017-10-01 03:33 | disposition home or self-care (01) ==
LOC: HOBED 01:06
DX: O99.282 Endocrine, nutritional and metabolic diseases complicating pregnancy, second trimester (principal); E86.0 Dehydration; O21.9 Vomiting of pregnancy, unspecified; O99.512 Diseases of the respiratory system complicating pregnancy, second trimester; J45.909 Unspecified asthma, uncomplicated; O99.212 Obesity complicating pregnancy, second trimester; O34.02 Maternal care for unspecified congenital malformation of uterus, second trimester; Q51.2 Other doubling of uterus; O99.322 Drug use complicating pregnancy, second trimester; Z79.899 Other long term (current) drug therapy; Z3A.16 16 weeks gestation of pregnancy; Z87.42 Personal history of other diseases of the female genital tract
CPT/HCPCS: 80053; 80307; 81001; 85027; 87086; 96360; 99283; G0481

== ENCOUNTER 2017-10-04 00:03 | Emergency (ER) | payer OTHER ==
[~2017-10-04] VITALS: Ht 165.1 cm; Wt 75.0 kg
[2017-10-04 00:10] VITALS: BP 133/60; PULSE 101; RESP 16; TEMP 98.5; O2SAT 96
[2017-10-04] MEDS ORDERED: CEPHALEXIN MONOHYDRATE 500 MG CAP PO ONE (01:00)
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
--- NOTE | 2017-10-04 02:18 | RADRPT ---
EXAM DATE: 10/04/2017 1:29 AM EDT AGE/SEX: 27 years / Female INDICATIONS: Bilateral redness in the lower extremities. CLINICAL DATA: This is the patient's initial encounter. Patient reports that signs and symptoms have been present for 2 days and indicates a pain score of 1/10. MEDICAL/SURGICAL HISTORY: . None. COMPARISON: No prior exams available for comparison. TECHNIQUE: Venous ultrasound of both lower extremities was performed from the inguinal ligament to t he proximal calf. Real-time, color Doppler and spectral tracing, compression and augmentation techni ques were used. FINDINGS: Right Leg: Normal compression of the deep venous system from the inguinal region to the proximal kyrie f. No echogenic clot is seen. Normal response of the venous system to augmentation and respiration. Left Leg: Normal compression of the deep venous system from the inguinal region to the proximal calf . No echogenic clot is seen. Normal response of the venous system to augmentation and respiration. Other: None. CONCLUSION: 1. The study is negative for bilateral lower extremity deep venous thrombosis. Electronically signed by: Fletcher Meza MD 10/04/2017 2:17 AM EDT
[2017-10-04] MEDS ORDERED: MUPI2%T TOPICAL (02:23)
[2017-10-04] MEDS ORDERED: CEPH-460 PO (02:23)
== END 2017-10-04 02:37 | disposition home or self-care (01) ==
LOC: NEPE 00:03
DX: O26.892 Other specified pregnancy related conditions, second trimester (principal); L24.9 Irritant contact dermatitis, unspecified cause; L03.116 Cellulitis of left lower limb; O99.332 Smoking (tobacco) complicating pregnancy, second trimester; Z3A.17 17 weeks gestation of pregnancy; Z79.899 Other long term (current) drug therapy
CPT/HCPCS: 93970; 99284